=== PATIENT | female | born 1935 | race Caucasian/White ===

== ENCOUNTER → 2016-09-30 | Outpatient (CLI) | payer OTHER, MEDICARE ==
[~2016-09-30] MED LIST: AMLO-110 PO; CALCTAB5 PO; CHOL1CAP85 PO; CLS1 PO; COEN1CAP46 PO; DOCU-94 PO; LEVO100T PO; LEVO1TAB35 PO; LEVO88TA PO; NXM/40 PO; OXYC-57 PO; ROSU5TAB PO; SENN1TAB77 PO
--- NOTE | 2016-09-30 16:38 | MAMMOGRAPHY REPORT ---
BILATERAL DIGITAL SCREENING MAMMOGRAM WITH CAD: 09/30/2016 CLINICAL HISTORY: Routine screening. Patient has no complaints. TECHNIQUE: Bilateral CC and MLO views were obtained. Current study was also evaluated with a Comput er Aided Detection (CAD) system. COMPARISON: Comparison is made to exams dated: 02/24/2015 mammogram, 12/28/2013 mammogram, 11/05/2012 ma mmogram, 11/04/2011 mammogram, 10/31/2010 mammogram, and 10/30/2009 mammogram - [facility] er. BREAST COMPOSITION: There are scattered areas of fibroglandular density in both breasts. FINDINGS: There are mild vascular calcifications and scattered bilateral benign-appearing calcifica tions in both breasts. No suspicious mass, architectural distortion or cluster of microcalcifications is seen. IMPRESSION: ACR BI-RADS CATEGORY 2: BENIGN There is no mammographic evidence of malignancy. A 1 year screening mammogram is recommended. The p atient will receive written notification of the results. Approximately 10% of breast cancers are not detected with mammography. A negative mammographic repor t should not delay biopsy if a clinically suggestive mass is present. Laurel Morrison M.D. ay/:09/30/2016 16:30:39 Geriatric Physician: Radha DILL(Mitra)(John), [facility] letter sent: Normal 1/2 BI-RADS Code: ACR BI-RADS Category 2: Benign
== END | disposition home or self-care (01) ==
LOC: C.MAMM 14:13
PROVIDERS: ATTEND Internal Medicine
DX: Z12.31 Encounter for screening mammogram for malignant neoplasm of breast (principal)

== ENCOUNTER → 2016-10-01 | Outpatient (CLI) | payer OTHER, MEDICARE ==
[2016-10-01 12:55] LABS: ALT/SGPT 56 U/L (12-78); BLOOD UREA NITROGEN 10 mg/dl (7-18); BUN/CREATININE RATIO 14.3 (10-20); CALCIUM 9.3 mg/dl (8.5-10.1); CARBON DIOXIDE 25 mmol/L (21-32); CHLORIDE 106 mmol/L (98-107); CHOLESTEROL 208 mg/dl (0-200); GLUCOSE 116 mg/dl (70-99); POTASSIUM 3.9 mmol/L (3.5-5.1); SODIUM 140 mmol/L (136-145)
[2016-10-01 13:06] LABS: ALB/GLOB RATIO 1.1 (0.9-2); ALKALINE PHOSPHATASE 97 U/L (45-117); AST/SGOT 50 U/L (15-37); CHOLESTEROL/HDL RATIO 3.8; HDL CHOLESTEROL 55 mg/dl; LDL CHOLESTEROL CALCULATED 92 mg/dl; TRIGLYCERIDES 303 mg/dl (0-150); VERY LOW DENSITY LIPOPROT CALC 61 mg/dl
== END | disposition home or self-care (01) ==
LOC: C.LAB1850 11:43
PROVIDERS: ATTEND Internal Medicine
DX: E03.9 Hypothyroidism, unspecified (principal); E78.5 Hyperlipidemia, unspecified; Z23 Encounter for immunization; Z85.828 Personal history of other malignant neoplasm of skin; I10 Essential (primary) hypertension; E55.9 Vitamin D deficiency, unspecified

== ENCOUNTER 2016-10-22 19:31 | Emergency (ER) | payer OTHER, MEDICARE ==
[~2016-10-22] VITALS: Ht 157.5 cm; Wt 84.9 kg
[~2016-10-22 19:31] MED LIST changes: -AMLO-110 PO; -CHOL1CAP85 PO; -DOCU-94 PO; -LEVO1TAB35 PO; -LEVO88TA PO; -OXYC-57 PO; -SENN1TAB77 PO
[2016-10-22 19:49] VITALS: BP 187/92; PULSE 112; TEMP 37; O2SAT 94; Ht 157.5 cm; Wt 84.9 kg
--- NOTE | 2016-10-22 20:08 | EMERGENCY ROOM VISIT NOTE ---
ED Visit Note First contact with patient: 19:53 CHIEF COMPLAINT: Tick bite HISTORY OF PRESENT ILLNESS: This patient noticed a tick embedded in the LEFT axillary area this evening. Was able to remove all of it. It had been on for about 24 hours. REVIEW OF SYSTEMS: Head: No headache, injury or neck pain. A Neck: No pain , stiffness, or swelling. Neurological: No headache, new changes in mental status, vertigo, focal weakness, numbness. Gastrointestinal: No abdominal pain , blood in stools, diarrhea, loss of appetite, nausea, or vomiting. General: No fever or chills, fatigue, loss of appetite, or significant recent weight gain or loss. PMH: The patient is healthy; there is no significant medical or surgical history. SOCIAL HISTORY: Patient lives at home. Non-smoker, occasional alcohol use. PHYSICAL EXAM: Vital Signs: Reviewed Nurse's notes. There is a small zone of inflammation and eccymosis around the spot where the tick was. The skin is otherwise clear. NEUROLOGICAL: Alert and cooperative. Sensory and motor functions grossly intact. DIAGNOSIS: Tick bite DISCHARGE INSTRUCTIONS & TREATMENT: Watch the area for signs of infection. Keep bacitracin on it for 2 days. Current/Historical Medications Scheduled Amlodipine (Norvasc), 5 MG PO DAILY Cholecalciferol (Vitamin D3), 10,000 UNITS PO WK Esomeprazole Magnesium (Nexium), 40 MG PO DAILY Levothyroxine Sodium (Synthroid), 88 MCG PO DAILY Rosuvastatin Calcium (Crestor), 10 MG PO HS Allergies Coded Allergies: Clavulanic Acid (Verified Allergy, Mild, 10/22/16) Gemfibrozil (Verified Allergy, Mild, 10/22/16) Tetracyclines (Verified Allergy, Mild, 10/22/16) Amoxicillin (Verified Allergy, Unknown, RASH, 10/22/16) Metformin (Verified Allergy, Unknown, ., 10/22/16) Macrolides (Verified Adverse Reaction, Mild, 10/22/16) Penicillins (Verified Adverse Reaction, Mild, C DIFF, 10/22/16) Vital Signs Date Time Temp Pulse Resp B/P Pulse Ox O2 Delivery O2 Flow Rate FiO2 10/22/16 19:49 37.0 112 18 187/92 94 Room Air Departure Information Impression Primary Impression: Tick bite Dispostion Home / Self-Care Condition GOOD Referrals RV. Carrillo MD (PCP) Forms HOME CARE DOCUMENTATION FORM, Work Instructions, IMPORTANT VISIT INFORMATION Patient Instructions ED Bite Tick No Abx Tx, My [facility] Additional Instructions Watch the area for signs of infection. Keep bacitracin on it for 2 days. Problem Qualifiers Primary Impression: Tick bite Encounter type: initial encounter Qualified Codes: W57.XXXA - Bitten or stung by nonvenomous insect and other nonvenomous arthropods, initial encounter
[2016-10-22] MEDS ORDERED: LEVO88TA PO (20:15)
[2016-10-22] MEDS ORDERED: AMLO-110 PO (20:15)
[2016-10-22] MEDS ORDERED: CHOL1CAP85 PO (20:15)
== END 2016-10-22 20:10 | disposition home or self-care (01) ==
LOC: C.EDB 19:32 → C.EDD 20:10
DX: S40.862A Insect bite (nonvenomous) of left upper arm, initial encounter (principal); W57.XXXA Bitten or stung by nonvenomous insect and other nonvenomous arthropods, initial encounter

== ENCOUNTER 2016-10-27 18:46 | Inpatient (IN) | payer OTHER, MEDICARE ==
[~2016-10-27] VITALS: Ht 158.8 cm; Wt 81.6 kg
[~2016-10-27 18:46] MED LIST changes: +AMLO-110 PO; -CALCTAB5 PO; +CHOL1CAP85 PO; -CLS1 PO; -COEN1CAP46 PO; -LEVO100T PO; +LEVO88TA PO
[2016-10-27] MEDS ORDERED: ACETAMINOPHEN 500 MG TAB PO STA (19:18)
--- NOTE | 2016-10-27 19:26 | EMERGENCY ROOM VISIT NOTE ---
History Report prepared by Hernan: Wai Jiménez Under the Supervision of: Dr. Ammon Cee M.D. First contact with patient: 19:12 Chief Complaint: SINUS CONGESTION/PRESSURE Stated Complaint: MUCUS History of Present Illness The patient is a 81 year old female who presents to the Emergency Room with complaints of worsening chest congestion that began 1 week ago. The patient has been taking [id number] Mucinex that she states has been helping until today. She has been experiencing fevers, no appetite, and cough with sputum.. She denies any vomiting, diarrhea, sore throat, shortness of breath, urinary symptoms, and rhinorrhea. She states that she has been keeping up with her fluid intake. She notes that she recently had a deer tick removed from her body. She denies any sick contacts. She did receive an influenza immunization this year. She does not have a past medical history of any lung disease. Source of History: patient Onset: 1 week ago Position: chest Symptom Intensity: moderate Quality: other (congestion) Timing: worsening Associated Symptoms: + cough, + fevers, No SOB, No diarrhea, No sorethroat, No urinary symptoms, No vomiting Note: She denies any rhinorrhea. Review of Systems See HPI for pertinent positives & negatives. A total of 10 systems reviewed and were otherwise negative. Past Medical & Surgical Medical Problems: (1) GERD (gastroesophageal reflux disease) (2) Hyperlipidemia Family History Omitted secondary to age. Social History Smoking Status: Never Smoker Smokeless Tobacco Use: No Drug Use: none Occupation Status: retired Current/Historical Medications Scheduled Amlodipine (Norvasc), 5 MG PO DAILY Cholecalciferol (Vitamin D3), 10,000 UNITS PO WK Esomeprazole Magnesium (Nexium), 40 MG PO DAILY Levothyroxine Sodium (Synthroid), 88 MCG PO DAILY Rosuvastatin Calcium (Crestor), 10 MG PO HS Allergies Coded Allergies: Clavulanic Acid (Verified Allergy, Mild, 10/27/16) Gemfibrozil (Verified Allergy, Mild, 10/27/16) Tetracyclines (Verified Allergy, Mild, 10/27/16) Amoxicillin (Verified Allergy, Unknown, RASH, 10/27/16) Metformin (Verified Allergy, Unknown, ., 10/27/16) Macrolides (Verified Adverse Reaction, Mild, 10/27/16) Penicillins (Verified Adverse Reaction, Mild, C DIFF, 10/27/16) Physical Exam Vital Signs Date Time Temp Pulse Resp B/P Pulse Ox O2 Delivery O2 Flow Rate FiO2 10/27/16 23:05 85 18 139/75 93 Nasal Cannula 2.0 10/27/16 22:30 86 21 131/52 92 Nasal Cannula 10/27/16 21:45 92 16 92 Nasal Cannula 2.0 10/27/16 21:16 37.4 90 22 127/83 97 Nasal Cannula 2.0 10/27/16 19:10 94 Nasal Cannula 2.0 10/27/16 19:09 94 Nasal Cannula 2.0 10/27/16 19:01 38.2 104 20 159/74 91 Room Air Physical Exam GENERAL: Patient is in no acute distress. HEENT: No acute trauma, normocephalic atraumatic, mucous membranes moist, no nasal congestion, no scleral icterus. NECK: No stridor, no adenopathy, no meningismus, trachea is midline. LUNGS: Wheezing bilaterally, moist cough noted, breath sounds are equal, crackles at both bases especially on the right. HEART: Tachycardic with a regular rhythm. No murmurs. ABDOMEN: Soft, nontender, bowel sounds positive, no hernias, no peritonitis. EXTREMITIES: No cyanosis or edema, full range of motion of all the joints without pain or difficulty, no signs for acute trauma. NEUROLOGIC: Oriented x 3, no acute motor or sensory deficits, no focal weakness. SKIN: No rash, no jaundice, no diaphoresis. Medical Decision & Procedures ER Provider Diagnostic Interpretation: X-ray results as stated below per interpretation by me and the radiologist: CHEST ONE VIEW PORTABLE CLINICAL HISTORY: Weakness. COMPARISON STUDY: No previous studies for comparison. FINDINGS: Lung volumes are normal. There is no pneumothorax or pleural effusion. There is mild asymmetric interstitial thickening within the right lung. Mild cardiomegaly is noted. IMPRESSION: 1. Mild asymmetric interstitial thickening within the right lung. While this could be artifactual, this raises the possibility of an infectious etiology or asymmetric pulmonary edema. PA and lateral chest radiographs in one month are recommended. 2. Mild cardiomegaly. Electronically signed by: Meng Fong M.D. 10/27/2016 7:37 PM Dictated Date/Time: 10/27/2016 7:35 PM Laboratory Results 10/27/16 19:52 Red Blood Count 4.71, Mean Corpuscular Volume 85.1, Mean Corpuscular Hemoglobin 30.1, Mean Corpuscular Hemoglobin Concent 35.4, Mean Platelet Volume 9.2, Neutrophils (%) (Auto) 63.9, Lymphocytes (%) (Auto) 23.5, Monocytes (%) (Auto) 10.7, Eosinophils (%) (Auto) 1.3, Basophils (%) (Auto) 0.3, Neutrophils # (Auto ) 5.82, Lymphocytes # (Auto) 2.14, Monocytes # (Auto) 0.98, Eosinophils # (Auto ) 0.12, Basophils # (Auto) 0.03 10/27/16 19:52 Test 10/27/16 00:00 10/27/16 19:52 10/27/16 19:55 10/27/16 20:15 Urine Color DK YELLOW Urine Appearance CLOUDY (CLEAR) Urine pH 5.5 (4.5-7.5) Urine Specific [place] 1.019 (1.000-1.030) Urine Protein 1+ (NEG) Urine Glucose (UA) NEG (NEG) Urine Ketones 1+ (NEG) Urine Occult Blood 2+ (NEG) Urine Nitrite NEG (NEG) Urine Bilirubin NEG (NEG) Urine Urobilinogen NEG (NEG) Urine Leukocyte Esterase SMALL (NEG) Urine WBC (Auto) 10-30 /hpf (0-5) Urine RBC (Auto) 5-10 /hpf (0-4) Urine Hyaline Casts (Auto) 1-5 /lpf (0-5) Urine Epithelial Cells (Auto) >30 /lpf (0-5) Urine Bacteria (Auto) NEG (NEG) Urine Renal Epithelial Cells 0-5 /lpf (0-5) White Blood Count 9.12 K/uL (4.8-10.8) Red Blood Count 4.71 M/uL (4.2-5.4) Hemoglobin 14.2 g/dL (12.0-16.0) Hematocrit 40.1 % (37-47) Mean Corpuscular Volume 85.1 fL (80-100) Mean Corpuscular Hemoglobin 30.1 pg (25-34) Mean Corpuscular Hemoglobin Concent 35.4 g/dl (32-36) Platelet Count 211 K/uL (130-400) Mean Platelet Volume 9.2 fL (7.4-10.4) Neutrophils (%) (Auto) 63.9 % Lymphocytes (%) (Auto) 23.5 % Monocytes (%) (Auto) 10.7 % Eosinophils (%) (Auto) 1.3 % Basophils (%) (Auto) 0.3 % Neutrophils # (Auto) 5.82 K/uL (1.4-6.5) Lymphocytes # (Auto) 2.14 K/uL (1.2-3.4) Monocytes # (Auto) 0.98 K/uL (0.11-0.59) Eosinophils # (Auto) 0.12 K/uL (0-0.5) Basophils # (Auto) 0.03 K/uL (0-0.2) RDW Standard Deviation 41.3 fL (36.4-46.3) RDW Coefficient of Variation 13.1 % (11.5-14.5) Immature Granulocyte % (Auto) 0.3 % Immature Granulocyte # (Auto) 0.03 K/uL (0.00-0.02) Anion Gap 9.0 mmol/L (3-11) Est Creatinine Clear Calc Drug Dose 68.2 ml/min Estimated GFR () 96.7 Estimated GFR (Non- 83.4 BUN/Creatinine Ratio 14.0 (10-20) Calcium Level 8.6 mg/dl (8.5-10.1) Magnesium Level 1.9 mg/dl (1.8-2.4) Total Bilirubin 0.5 mg/dl (0.2-1) Direct Bilirubin 0.1 mg/dl (0-0.2) Aspartate Amino Transf (AST/SGOT) 44 U/L (15-37) Alanine Aminotransferase (ALT/SGPT) 31 U/L (12-78) Alkaline Phosphatase 81 U/L (45-117) Total Protein 7.4 gm/dl (6.4-8.2) Albumin 3.8 gm/dl (3.4-5.0) Thyroid Stimulating Hormone (TSH) 2.630 uIu/ml (0.300-4.500) Free Thyroxine 1.25 ng/dl (0.80-1.60) Bedside Lactic Acid Venous 0.96 mmol/L (0.90-1.70) Influenza Type A Antigen Neg for Influ A (NEG) Influenza Type B Antigen Neg for Influ B (NEG) Test 10/27/16 23:04 Laboratory results reviewed by me. Medications Administered Medications (Trade) Dose Ordered Sig/Daina Route Start Time Stop Time Status Last Admin Dose Admin Acetaminophen (Tylenol Tab) 1,000 mg NOW STAT PO 10/27/16 19:18 10/27/16 19:20 DC 10/27/16 20:14 1,000 MG Albuterol (Ventolin Hfa Inhaler) 4 puffs NOW ONCE INH 10/27/16 19:30 10/27/16 19:31 DC 10/27/16 20:15 4 PUFFS Levofloxacin (Levaquin / D5W) 750 mg NOW STAT IV 10/27/16 20:31 10/27/16 20:32 DC 10/27/16 21:10 750 MG Levalbuterol (Xopenex 1.25MG/ 0.5ML Neb) 1.25 mg NOW STAT INH 10/27/16 21:32 10/27/16 21:33 DC 10/27/16 21:41 1.25 MG Ipratropium [place] (Atrovent 0.02% 0.5MG/2.5ML Neb) 0.5 mg NOW STAT INH 10/27/16 21:32 10/27/16 21:33 DC 10/27/16 21:41 0.5 MG ECG Indication: SOB/dyspnea Rate (beats per minute): 97 Rhythm: sinus rhythm Findings: 1st degree AV block, no acute ischemic change, no ectopy ED Course 1911: The patient was evaluated in room C11B. A complete history and physical exam was performed. 1917: Ordered Tylenol Tab 1000 mg PO 1929: Ordered Albuterol 4 puffs INH 2030: Ordered Levofloxacin 750 mg IV 2131: Ordered Ipratropium [place] 0.5 mg INH, Levalbuterol 1.25 mg INH 2143: Upon reexamination the patient is resting. I discussed results and treatment plan with the patient. She verbalizes agreement and understanding. The patient will be evaluated by Dr. Zaidi - [facility], for further management. Medical Decision Differential diagnosis includes but is not limited to pneumonia, bronchitis, sepsis, dehydration, influenza, flu-like illness, anemia, electrolyte imbalance , and UTI. There is no leukocytosis or concerning anemia. No significant electrolyte abnormality, kidney failure, hepatitis. The patient appears to be in a euthyroid state. Urinalysis does not show infection. Influenza testing is negative. Lactic acid level is not elevated making sepsis less likely. Chest x -ray shows what appears to be an infiltrate forming to the right lung. There was no CHF or pneumothorax. Blood cultures are pending. The patient presented with a low O2 saturation-she was hypoxic. She required O2 supplementation. Her initial O2 saturation was 87% on room air. She received albuterol via MDI, oral Tylenol, IV Levaquin. She received IV saline and was given a Xopenex Atrovent neb. The patient is doing well. With the hypoxia, with pneumonia findings, I do think admission/observation is warranted. I spoke with her and to case management. The on-call hospitalist was consulted. Consults Time Called: 2139 Consulting Physician: Dr. Dyan Roa [facility] Returned Call: [phone] He will be evaluating the patient for further management. Impression Primary Impression: Hypoxia Additional Impressions: Pneumonia Fever Scribe Attestation The scribe's documentation has been prepared under my direction and personally reviewed by me in its entirety. I confirm that the note above accurately reflects all work, treatment, procedures, and medical decision making performed by me. Departure Information Dispostion Being Evaluated By Hospitalist Referrals RV. Carrillo MD (PCP) Patient Instructions My [facility] Problem Qualifiers
[2016-10-27] MEDS ORDERED: ALBUTEROL HFA 8 GM INHALER INH ONE (19:30)
--- NOTE | 2016-10-27 19:38 | DIAGNOSTIC IMAGING REPORT ---
CHEST ONE VIEW PORTABLE CLINICAL HISTORY: Weakness. COMPARISON STUDY: No previous studies for comparison. FINDINGS: Lung volumes are normal. There is no pneumothorax or pleural effusion. There is mild asymmetric interstitial thickening within the right lung. Mild cardiomegaly is noted. IMPRESSION: 1. Mild asymmetric interstitial thickening within the right lung. While this could be artifactual, this raises the possibility of an infectious etiology or asymmetric pulmonary edema. PA and lateral chest radiographs in one month are recommended. 2. Mild cardiomegaly. Electronically signed by: Meng Fong M.D. 10/27/2016 7:37 PM Dictated Date/Time: 10/27/2016 7:35 PM
[2016-10-27 20:19] LABS: BASO % 0.3 %; BASO ABS # 0.03 K/uL (0-0.2); COMPLETE YES; EOS % 1.3 %; HEMATOCRIT 40.1 % (37-47); IG% 0.3 %; LYMPH % 23.5 %; LYMPH ABS # 2.14 K/uL (1.2-3.4); MEAN CELL VOLUME 85.1 fL (80-100); MEAN CORPUSCULAR HEMOGLOBIN 30.1 pg (25-34); MEAN CORPUSCULAR HGB CONC 35.4 g/dl (32-36); MEAN PLATELET VOLUME 9.2 fL (7.4-10.4); MONO % 10.7 %; NEUT % 63.9 %; PLATELET COUNT 211 K/uL (130-400); RED BLOOD COUNT 4.71 M/uL (4.2-5.4); WHITE BLOOD COUNT 9.12 K/uL (4.8-10.8)
[2016-10-27] MEDS ORDERED: LEVAQUIN 750MG / 150ML D5W IV STA (20:31)
[2016-10-27 20:47] LABS: ALT/SGPT 31 U/L (12-78); AST/SGOT 44 U/L (15-37); BLOOD UREA NITROGEN 9 mg/dl (7-18); CALCIUM 8.6 mg/dl (8.5-10.1); CARBON DIOXIDE 29 mmol/L (21-32); CHLORIDE 94 mmol/L (98-107); CREATININE 0.66 mg/dl (0.60-1.20); GLUCOSE 129 mg/dl (70-99); MAGNESIUM 1.9 mg/dl (1.8-2.4); POTASSIUM 3.4 mmol/L (3.5-5.1); SODIUM 132 mmol/L (136-145)
[2016-10-27 20:55] LABS: ALKALINE PHOSPHATASE 81 U/L (45-117)
[2016-10-27] MEDS ORDERED: IPRATROPIUM BROMIDE NEB SOLN 0.02% 2.5 ML VIAL INH STA (21:32)
[2016-10-27] MEDS ORDERED: LEVALBUTEROL 1.25MG/0.5ML NEB INH STA (21:32)
[2016-10-27 21:35] LABS: URINE APPEARANCE CLOUDY (CLEAR); URINE BILIRUBIN NEG (NEG); URINE COLOR DK YELLOW; URINE EPITHELIAL CELL AUTO >30 /lpf (0-5); URINE NITRITE NEG (NEG); URINE PH 5.5 (4.5-7.5); URINE SPECIFIC GRAVITY 1.019 (1.000-1.030); UROBILINOGEN NEG (NEG)
[2016-10-27 21:45] VITALS: PULSE 92; O2SAT 92
[2016-10-27 21:53] LABS: MANUAL MICROSCOPIC REQUIRED? NO; REVIEW REQ? YES
[2016-10-27] MEDS ORDERED: ONDANSETRON INJ 2 MG/ML 2 ML VIAL IV PRN (22:15)
[2016-10-27] MEDS ORDERED: ALUMINUM/MAGNESIUM/SIMETH (MAALOX MAX) 30 ML UDC PO PRN (22:15)
[2016-10-27] MEDS ORDERED: MAGNESIUM HYDROXIDE SUSP 30 ML UDC PO PRN (22:15)
[2016-10-27] MEDS ORDERED: ACETAMINOPHEN 325 MG TAB PO PRN (22:15)
[2016-10-27] MEDS ORDERED: ALBUTEROL 0.083% NEBU SOLN 3 ML VIAL INH PRN (22:15)
[2016-10-27] MEDS ORDERED: POLYETHYLENE (MIRALAX) 17 GM PACK PO PRN (22:15)
[2016-10-27] MEDS ORDERED: MAGNESIUM OXIDE 400 MG TAB PO SCH (22:30)
--- NOTE | 2016-10-27 22:39 | History and Physical ---
History & Physical Date & Time of Service: Oct 27, 2016 at 22:25 Chief Complaint: MUCUS Primary Care Physician: RV. Carrillo MD History of Present Illness Source: patient 81 y/o F Hx HTN, HPL, hypothyroidism. Pt has had a productive cough for one week followed by fevers over the past few days. She had been taking Mucinex OTC with minimal relief. She denies CP, N/V however she complains of weakness and a poor appetite. 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 Past Medical/Surgical History Medical Problems: (1) GERD (gastroesophageal reflux disease) Status: Chronic (2) Hyperlipidemia Status: Chronic Family History Both parents owing to heart disease Social History Smoking Status: Never Smoker Smokeless Tobacco Use: No Drug Use: none Occupational Status: retired Immunizations History of Influenza Vaccine: No History of Tetanus Vaccine?: Yes Tetanus Immunization Date: Dec 16, 1999 History of Pneumococcal: Yes Pneumococcal Date: Dec 16, 1999 History of Hepatitis B Vaccine: Yes Hepatitis Immunization Date: Dec 16, 1999 Multi-Drug Resistant Organisms History of MDRO: No Allergies Coded Allergies: Clavulanic Acid (Verified Allergy, Mild, 10/27/16) Gemfibrozil (Verified Allergy, Mild, 10/27/16) Tetracyclines (Verified Allergy, Mild, 10/27/16) Amoxicillin (Verified Allergy, Unknown, RASH, 10/27/16) Metformin (Verified Allergy, Unknown, ., 10/27/16) Macrolides (Verified Adverse Reaction, Mild, 10/27/16) Penicillins (Verified Adverse Reaction, Mild, C DIFF, 10/27/16) Home Medications Scheduled Amlodipine (Norvasc), 5 MG PO DAILY Cholecalciferol (Vitamin D3), 10,000 UNITS PO WK Esomeprazole Magnesium (Nexium), 40 MG PO DAILY Levothyroxine Sodium (Synthroid), 88 MCG PO DAILY Rosuvastatin Calcium (Crestor), 10 MG PO HS Review of Systems Constitutional: + fever, + sweats, + weakness Eyes: No eye pain, No worsening of vision ENT: No hearing loss, No nasal symptoms, No unusual epistaxis Respiratory: + cough, + shortness of breath, + sputum, No dyspnea on exertion, No wheezing Cardiovascular: No PND, No chest pain, No orthopnea Abdomen: No nausea, No pain, No vomiting Musculoskeletal: No joint pain, No muscle pain Genitourinary - Female: No dysuria, No urinary frequency, No urinary urgency Neurologic: + weakness, No memory loss, No paralysis Psychiatric: No depression symptoms Endocrine: + fatigue Hematologic / Lymphatic: No abnormal bleeding/bruising Integumentary: No rash Allergic / Immunologic: No environmental allergies Physical Exam Vital Signs Date Time Temp Pulse Resp B/P Pulse Ox O2 Delivery O2 Flow Rate FiO2 10/27/16 21:45 92 16 92 Nasal Cannula 2.0 10/27/16 21:16 37.4 90 22 127/83 97 Nasal Cannula 2.0 10/27/16 19:10 94 Nasal Cannula 2.0 10/27/16 19:09 94 Nasal Cannula 2.0 10/27/16 19:01 38.2 104 20 159/74 91 Room Air General Appearance: WD/WN, no apparent distress Head: normocephalic Eyes: normal inspection ENT: normal ENT inspection, hearing grossly normal, + pertinent finding (May have thrush on her tongue ) Neck: supple, no JVD Respiratory/Chest: + decreased breath sounds, + crackles, + pertinent finding ( B/L crackles - poor air movement) Cardiovascular: regular rate, rhythm, no edema, no gallop Abdomen/GI: normal bowel sounds, non tender, soft Back: normal inspection, no CVA tenderness, no muscle spasm, normal range of motion Extremities/Musculoskelatal: normal inspection, no calf tenderness, normal capillary refill, no pedal edema, normal range of motion 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, no motor/sensory deficits, alert, normal mood/affect, normal reflexes, oriented x 3 Skin: normal color, warm/dry, no rash Diagnostics Laboratory Results Results Past 24 Hours Test 10/27/16 00:00 10/27/16 19:52 10/27/16 19:55 10/27/16 20:15 Range/Units Urine Color DK YELLOW Urine Appearance CLOUDY CLEAR Urine pH 5.5 4.5-7.5 Urine Specific [place] 1.019 1.000-1.030 Urine Protein 1+ NEG Urine Glucose (UA) NEG NEG Urine Ketones 1+ NEG Urine Occult Blood 2+ NEG Urine Nitrite NEG NEG Urine Bilirubin NEG NEG Urine Urobilinogen NEG NEG Urine Leukocyte Esterase SMALL NEG White Blood Count 9.12 4.8-10.8 K/uL Red Blood Count 4.71 4.2-5.4 M/uL Hemoglobin 14.2 12.0-16.0 g/dL Hematocrit 40.1 37-47 % Mean Corpuscular Volume 85.1 80-100 fL Mean Corpuscular Hemoglobin 30.1 25-34 pg Mean Corpuscular Hemoglobin Concent 35.4 32-36 g/dl Platelet Count 211 130-400 K/uL Mean Platelet Volume 9.2 7.4-10.4 fL Neutrophils (%) (Auto) 63.9 % Lymphocytes (%) (Auto) 23.5 % Monocytes (%) (Auto) 10.7 % Eosinophils (%) (Auto) 1.3 % Basophils (%) (Auto) 0.3 % Neutrophils # (Auto) 5.82 1.4-6.5 K/uL Lymphocytes # (Auto) 2.14 1.2-3.4 K/uL Monocytes # (Auto) 0.98 0.11-0.59 K/uL Eosinophils # (Auto) 0.12 0-0.5 K/uL Basophils # (Auto) 0.03 0-0.2 K/uL RDW Standard Deviation 41.3 36.4-46.3 fL RDW Coefficient of Variation 13.1 11.5-14.5 % Immature Granulocyte % (Auto) 0.3 % Immature Granulocyte # (Auto) 0.03 0.00-0.02 K/uL Sodium Level 132 136-145 mmol/L Potassium Level 3.4 3.5-5.1 mmol/L Chloride Level 94 98-107 mmol/L Carbon Dioxide Level 29 21-32 mmol/L Anion Gap 9.0 3-11 mmol/L Blood Urea Nitrogen 9 7-18 mg/dl Creatinine 0.66 0.60-1.20 mg/dl Est Creatinine Clear Calc Drug Dose 68.2 ml/min Estimated GFR () 96.7 Estimated GFR (Non- 83.4 BUN/Creatinine Ratio 14.0 10-20 Random Glucose 129 70-99 mg/dl Calcium Level 8.6 8.5-10.1 mg/dl Magnesium Level 1.9 1.8-2.4 mg/dl Total Bilirubin 0.5 0.2-1 mg/dl Direct Bilirubin 0.1 0-0.2 mg/dl Aspartate Amino Transf (AST/SGOT) 44 15-37 U/L Alanine Aminotransferase (ALT/SGPT) 31 12-78 U/L Alkaline Phosphatase 81 45-117 U/L Total Protein 7.4 6.4-8.2 gm/dl Albumin 3.8 3.4-5.0 gm/dl Thyroid Stimulating Hormone (TSH) 2.630 0.300-4.500 uIu/ml Free Thyroxine 1.25 0.80-1.60 ng/dl Bedside Lactic Acid Venous 0.96 0.90-1.70 mmol/L Influenza Type A Antigen Neg for Influ A NEG Influenza Type B Antigen Neg for Influ B NEG Microbiology Results 10/27/16 Blood Culture, Received Pending 10/27/16 Blood Culture, Received Pending 10/27/16 Urine Culture, Received Pending Diagnostic Radiology CXR: 1. Mild asymmetric interstitial thickening within the right lung. While this could be artifactual, this raises the possibility of an infectious etiology or asymmetric pulmonary edema. PA and lateral chest radiographs in one month are recommended. 2. Mild cardiomegaly. EKG Sinus - 1st' AV Impression Assessment and Plan 81 y/o F Hx HTN, HPL, hypothyroidism. Pt has had a productive cough for one week followed by fevers over the past few days. She had been taking Mucinex OTC with minimal relief. She denies CP, N/V however she complains of weakness and a poor appetite. Initial CXR is consistent with a R PNM. 1) PNM - pt started on Levaquin - will provide scheduled nebs and 02 as needed. It is noted that the CXR reading states CHF as an alternative diagnosis. Her lung exam is concernig however clinically she does not c/o SOB, orthopnea or PND. There is no JVD on exam. She is to receive hydration so if she worsens we should consider diuretics and an echo. 2) HTN - cont Norvasc. 3) Hypothyroid - cont Synthroid. 4) HLD - cont Statin. 5) Hyponatremia, hypokalemia - mild - replaced 6) Thrush - Nystatin provided Full code - Heparin prophylaxis Total time for this admit including review of labs, meds, EKG, imaging - discussion with pt and ER attending - 35 min Level of Care Med/Surg Resuscitation Status FULL RESUSCITATION VTE Prophylaxis VTE Risk Assessment Done? Y/N: Yes Risk Level: Moderate Given or contraindicated: Unfractionated heparin SQ
[2016-10-27 23:21] VITALS: BP 130/68; PULSE 94; TEMP 36.8; O2SAT 94
[2016-10-28] VITALS (8 sets, daily range): BP systolic 130–148; BP diastolic 68–79; PULSE 82–98; TEMP 36.3–37.2; O2SAT 93–96; Ht 158.8 cm; Wt 81.6 kg
[2016-10-28] MEDS ORDERED: MAGNESIUM SULFATE 1GM / D5W 1 GM in PREMIXED IN D5W 100 ML IV ONE (00:30)
[2016-10-28] MEDS: NSS + 20MEQ KCL 1000ML 1,000 ML IV SCH ×2 (01:13→10:24)
[2016-10-28] MEDS ORDERED: POTASSIUM CHLORIDE PWD 20 MEQ PACK PO ONE (02:00)
[2016-10-28] MEDS: ALBUT/IPRATROP 3MG/0.5MG NEB 3 ML VIAL INH SCH ×4 (02:31→19:35)
[2016-10-28] MEDS ORDERED: LEVOFLOXACIN CONSULT ACTIVE PRN (02:45)
[2016-10-28] MEDS: LEVOTHYROXINE 88 MCG TAB PO SCH (06:21)
[2016-10-28 07:46] LABS: PROTHROMBIN TIME (PATIENT) 11.1 SECONDS (9.0-12.0)
[2016-10-28] MEDS: NYSTATIN SUSP 500,000 U/5 ML UDC PO SCH ×4 (08:13→20:18)
[2016-10-28] MEDS: PANTOprazole SOD 40 MG TAB PO SCH (08:13)
[2016-10-28] MEDS: AMLODIPINE BESYLATE 5 MG TAB PO SCH (08:14)
[2016-10-28] MEDS: HEPARIN SOD 5000 UNIT/0.5 ML CARP SQ SCH ×3 (08:16→22:00)
[2016-10-28 08:55] LABS: CREATININE 0.59 mg/dl (0.60-1.20); POTASSIUM 3.6 mmol/L (3.5-5.1)
[2016-10-28 09:01] LABS: CALCIUM 8.9 mg/dl (8.5-10.1)
--- NOTE | 2016-10-28 13:13 | DIAGNOSTIC IMAGING REPORT ---
CHEST 2 VIEWS ROUTINE CLINICAL HISTORY: Pneumonia COMPARISON STUDY: 10/27/2016 FINDINGS: The cardiac and mediastinal contours remain stable. There is subtle asymmetric interstitial thickening on the right. There is no lobar consolidation. There is minor blunting of the posterior costophrenic angles. IMPRESSION: No significant change from the preceding study. Subtle asymmetric interstitial thickening. No evidence of lobar consolidation. Electronically signed by: Wayne Bridges M.D. 10/28/2016 1:12 PM Dictated Date/Time: 10/28/2016 1:11 PM
--- NOTE | 2016-10-28 14:26 | Family Medicine Progress Note ---
Progress Note Date of Service October 28, 2016. Subjective Pt evaluation today including: conversation w/ patient, physical exam, chart review, lab review Pain: denies pain Voiding: no voiding problems 81-year-old female with past medical history of hypertension, hypothyroidism, hyperlipidemia presented with complaints of productive cough which started about a week ago. She also had developed fevers over the past few days . Has been afebrile overnight, but states that she feels better and her weakness is improved. Continues to have a cough and is able to expectorate some sputum. Denies any chest pain, shortness of breath, palpitations, orthopnea, paroxysmal nocturnal dyspnea, leg swelling Constitutional: No chills, No fever Eyes: No worsening of vision ENT: No hearing loss Respiratory: + cough, + sputum, No shortness of breath, No wheezing Cardiovascular: No chest pain Breast: No breast lump Abdomen: No diarrhea, No nausea, No pain, No vomiting Musculoskeletal: No joint pain Female : No dysuria Psychiatric: No depression symptoms Heme: No abnormal bleeding/bruising Medications Current Inpatient Medications Medications (Trade) Dose Ordered Sig/Daina Route Start Time Stop Time Status Last Admin Dose Admin Levofloxacin/Prmx (Levaquin / D5W/ Premixed D5W) 150 ml @ 100 mls/hr Q24H IV 10/28/16 22:00 11/03/16 21:59 Albuterol/ Ipratropium (Duoneb) 3 ml Q6R INH 10/28/16 03:00 11/27/16 02:59 10/28/16 14:02 3 ML Albuterol Sulfate (Ventolin 0.083% 2.5MG/3ML Neb) 2.5 mg Q4H PRN INH 10/27/16 22:15 11/26/16 22:14 Heparin Sodium (Porcine) (Heparin Sq 5000 Unit/0.5ml) 5,000 unit Q8 SQ 10/28/16 08:00 11/27/16 07:59 10/28/16 08:16 5,000 UNIT Acetaminophen (Tylenol Tab) 650 mg Q4H PRN PO 10/27/16 22:15 11/26/16 22:14 Al Hydrox/Mg Hydrox/Simethicone (Maalox Max Susp) 15 ml Q4H PRN PO 10/27/16 22:15 11/26/16 22:14 Magnesium Hydroxide (Milk Of Magnesia Susp) 30 ml Q6H PRN PO 10/27/16 22:15 11/26/16 22:14 Polyethylene (Miralax Powder Packet) 17 gm DAILY PRN PO 10/27/16 22:15 11/26/16 22:14 Ondansetron HCl (Zofran Inj) 4 mg Q6H PRN IV 10/27/16 22:15 11/26/16 22:14 Amlodipine Besylate (Norvasc Tab) 5 mg DAILY PO 10/28/16 09:00 11/27/16 08:59 10/28/16 08:14 5 MG Levothyroxine Sodium (Synthroid Tab) 88 mcg DAILYBB PO 10/28/16 06:30 11/27/16 06:29 10/28/16 06:21 88 MCG Rosuvastatin Calcium (Crestor Tab) 10 mg HS PO 10/28/16 21:00 11/27/16 20:59 Cholecalciferol (Vitamin D Tab) 10,000 inter.unit [place]@0900 PO 11/03/16 09:00 12/03/16 08:59 Pantoprazole Sodium 40 mg 40 mg DAILY PO 10/28/16 09:00 11/27/16 08:59 10/28/16 08:13 40 MG Potassium Chloride/Sodium Chloride (Nss + 20meq KCl 1000ml) 1,000 ml @ 100 mls/hr Q10H IV 10/28/16 00:30 10/28/16 20:29 10/28/16 10:24 100 MLS/HR Nystatin (Mycostatin Susp) 5 ml QID PO 10/28/16 09:00 11/07/16 08:59 10/28/16 12:54 5 ML Levofloxacin (Consult) 1 ea UD PRN N/A 10/28/16 02:45 11/27/16 02:44 Objective Vital Signs Date Time Temp Pulse Resp B/P Pulse Ox O2 Delivery O2 Flow Rate FiO2 10/28/16 14:02 87 16 94 Nasal Cannula 2.0 10/28/16 08:00 93 Nasal Cannula 2.0 10/28/16 07:33 37.2 82 20 130/76 93 Room Air 10/28/16 06:56 91 16 94 Nasal Cannula 2.0 10/28/16 02:31 83 16 96 Nasal Cannula 2.0 10/28/16 02:21 36.8 94 20 130/68 94 Nasal Cannula 2.0 10/27/16 23:21 36.8 94 20 130/68 94 2.0 10/27/16 23:05 85 18 139/75 93 Nasal Cannula 2.0 10/27/16 22:30 86 21 131/52 92 Nasal Cannula 10/27/16 21:45 92 16 92 Nasal Cannula 2.0 10/27/16 21:16 37.4 90 22 127/83 97 Nasal Cannula 2.0 10/27/16 19:10 94 Nasal Cannula 2.0 10/27/16 19:09 94 Nasal Cannula 2.0 10/27/16 19:01 38.2 104 20 159/74 91 Room Air Physical Exam General Appearance: WD/WN, no apparent distress Eyes: normal inspection ENT: normal ENT inspection, hearing grossly normal Neck: supple Respiratory/Chest: chest non-tender, + crackles (Bialteral bases. R>L) Cardiovascular: regular rate, rhythm, no edema Abdomen: normal bowel sounds, non tender, soft Extremities: non-tender, no pedal edema Neurologic/Psychiatric: alert, normal mood/affect, oriented x 3 Laboratory Results 10/27/16 19:52 Red Blood Count 4.71, Mean Corpuscular Volume 85.1, Mean Corpuscular Hemoglobin 30.1, Mean Corpuscular Hemoglobin Concent 35.4, Mean Platelet Volume 9.2, Neutrophils (%) (Auto) 63.9, Lymphocytes (%) (Auto) 23.5, Monocytes (%) (Auto) 10.7, Eosinophils (%) (Auto) 1.3, Basophils (%) (Auto) 0.3, Neutrophils # (Auto ) 5.82, Lymphocytes # (Auto) 2.14, Monocytes # (Auto) 0.98, Eosinophils # (Auto ) 0.12, Basophils # (Auto) 0.03 10/28/16 06:36 Test 10/27/16 19:52 10/27/16 19:55 10/27/16 20:15 10/28/16 06:36 White Blood Count 9.12 K/uL (4.8-10.8) Red Blood Count 4.71 M/uL (4.2-5.4) Hemoglobin 14.2 g/dL (12.0-16.0) Hematocrit 40.1 % (37-47) Mean Corpuscular Volume 85.1 fL (80-100) Mean Corpuscular Hemoglobin 30.1 pg (25-34) Mean Corpuscular Hemoglobin Concent 35.4 g/dl (32-36) Platelet Count 211 K/uL (130-400) Mean Platelet Volume 9.2 fL (7.4-10.4) Neutrophils (%) (Auto) 63.9 % Lymphocytes (%) (Auto) 23.5 % Monocytes (%) (Auto) 10.7 % Eosinophils (%) (Auto) 1.3 % Basophils (%) (Auto) 0.3 % Neutrophils # (Auto) 5.82 K/uL (1.4-6.5) Lymphocytes # (Auto) 2.14 K/uL (1.2-3.4) Monocytes # (Auto) 0.98 K/uL (0.11-0.59) Eosinophils # (Auto) 0.12 K/uL (0-0.5) Basophils # (Auto) 0.03 K/uL (0-0.2) RDW Standard Deviation 41.3 fL (36.4-46.3) RDW Coefficient of Variation 13.1 % (11.5-14.5) Immature Granulocyte % (Auto) 0.3 % Immature Granulocyte # (Auto) 0.03 K/uL (0.00-0.02) Magnesium Level 1.9 mg/dl (1.8-2.4) Total Bilirubin 0.5 mg/dl (0.2-1) Direct Bilirubin 0.1 mg/dl (0-0.2) Aspartate Amino Transf (AST/SGOT) 44 U/L (15-37) Alanine Aminotransferase (ALT/SGPT) 31 U/L (12-78) Alkaline Phosphatase 81 U/L (45-117) Troponin I < 0.015 ng/ml (0-0.045) Pro-B-Type Natriuretic Peptide 112 pg/ml (0-1800) Total Protein 7.4 gm/dl (6.4-8.2) Albumin 3.8 gm/dl (3.4-5.0) Thyroid Stimulating Hormone (TSH) 2.630 uIu/ml (0.300-4.500) Free Thyroxine 1.25 ng/dl (0.80-1.60) Bedside Lactic Acid Venous 0.96 mmol/L (0.90-1.70) Influenza Type A Antigen Neg for Influ A (NEG) Influenza Type B Antigen Neg for Influ B (NEG) Prothrombin Time 11.1 SECONDS (9.0-12.0) Prothromb Time International Ratio 1.0 (0.9-1.1) Anion Gap 8.0 mmol/L (3-11) Est Creatinine Clear Calc Drug Dose 76.1 ml/min Estimated GFR () 100.3 Estimated GFR (Non- 86.6 BUN/Creatinine Ratio 12.0 (10-20) Calcium Level 8.9 mg/dl (8.5-10.1) Assessment and Plan 81-year-old female with past medical history of hypertension, hypothyroidism, hyperlipidemia presented with complaints of productive cough which started about a week ago. She also had developed fevers over the past few days . Admitted for possible pneumonia Community-acquired pneumonia - Chest x-ray 10/27:1. Mild asymmetric interstitial thickening within the right lung. infectious etiology vs asymmetric pulmonary edema. 2. Mild cardiomegaly. - Chest x-ray 10/28: No significant change from the preceding study. Subtle asymmetric interstitial thickening. No evidence of lobar consolidation. -Continue Levaquin - Continue nebulizers and oxygen as needed - Blood cultures, sputum culture pending Hypertension: - Continue Norvasc Hypothyroidism: - Continue Synthroid Hyperlipidemia - Continue statin Full code DVT prophylaxis: Heparin Disposition: Monitor in [facility] Resident Tracking Resident Involvement: Resident Care Provided Care Provided: Adult Hospital Medicine Reviewed: Pt Seen/Exam by Me History no fever since after admission but feeling very cold right now cough +, phlegm + Cardiovascular: denies chest pain, denies edema, denies palpitations Gastrointestinal/Abdominal: negative: abdominal pain General Appearance: no apparent distress Respiratory: no respiratory distress, crackles (bilaterally lower lung) Cardiovascular: regular rate, rhythm Gastrointestinal: normal bowel sounds, non tender, soft Neurologic/Psychiatric: alert, oriented x 3 Assessment/Plan I have reviewed the medical record and performed a history and physical examination of this patient today. I have discussed the case with Dr. Grey. The above note reflects my findings, conclusions, and recommendation.
[2016-10-28] MEDS ORDERED: SODIUM CHLORIDE 0.65% NA SOLN 45 ML (OCEAN) PRN (17:00)
[2016-10-28] MEDS ORDERED: NURSING VERBAL MED ORDER ONE (17:00)
[2016-10-28] MEDS ORDERED: ROSUVASTATIN CALCIUM 10 MG TAB PO SCH (21:00)
[2016-10-28] MEDS ORDERED: LEVOFLOXACIN / D5W 750 MG in PREMIXED IN D5W 150 ML IV SCH (22:00)
[2016-10-29] VITALS (8 sets, daily range): BP systolic 142–173; BP diastolic 79–93; PULSE 89–111; TEMP 36.7–37.1; O2SAT 93–96
[2016-10-29] MEDS: ALBUT/IPRATROP 3MG/0.5MG NEB 3 ML VIAL INH SCH ×3 (02:00→14:21)
[2016-10-29] MEDS ORDERED: HALOPERIDOL LACTATE 5 MG/ML 1 ML VIAL ONE (04:37)
[2016-10-29] MEDS ORDERED: HALOPERIDOL LACTATE 5 MG/ML 1 ML VIAL IM STA (04:40)
[2016-10-29] MEDS ORDERED: NURSING VERBAL MED ORDER ONE (04:45)
[2016-10-29] MEDS: HEPARIN SOD 5000 UNIT/0.5 ML CARP SQ SCH ×2 (05:29→12:22)
[2016-10-29] MEDS: NYSTATIN SUSP 500,000 U/5 ML UDC PO SCH ×2 (07:58→12:22)
[2016-10-29] MEDS: AMLODIPINE BESYLATE 5 MG TAB PO SCH (07:58)
[2016-10-29] MEDS: PANTOprazole SOD 40 MG TAB PO SCH (07:58)
[2016-10-29] MEDS: LEVOTHYROXINE 88 MCG TAB PO SCH (07:58)
[2016-10-29 12:03] LABS: MEAN CELL VOLUME 84.8 fL (80-100); MEAN CORPUSCULAR HEMOGLOBIN 30.3 pg (25-34); MEAN PLATELET VOLUME 9.2 fL (7.4-10.4); PLATELET COUNT 258 K/uL (130-400); RED BLOOD COUNT 4.95 M/uL (4.2-5.4); WHITE BLOOD COUNT 6.84 K/uL (4.8-10.8)
[2016-10-29 12:18] LABS: MEAN CORPUSCULAR HGB CONC 35.7 g/dl (32-36)
[2016-10-29 12:28] LABS: BUN/CREATININE RATIO 14.6 (10-20); CALCIUM 9.8 mg/dl (8.5-10.1); CREATININE 0.5 mg/dl (0.60-1.20); MAGNESIUM 2.3 mg/dl (1.8-2.4); POTASSIUM 3.4 mmol/L (3.5-5.1)
[2016-10-29 13:04] LABS: LYME DISEASE AB IGG NEG (NEG)
[2016-10-29 13:07] LABS: LYME DISEASE AB IGM NEG (NEG)
[2016-10-29] MEDS ORDERED: LEVO1TAB35 PO ×2 (17:11→17:28)
--- NOTE | 2016-10-29 17:19 | Discharge Instructions ---
Discharge Instructions Date of Service October 29, 2016. Admission Reason for Admission: Pneumonia Discharge Discharge Diagnosis / Problem: Pneumonia Discharge Goals Goal(s): Decrease discomfort Activity Recommendations Activity Limitations: resume your previous activity . Instructions / Follow-Up Instructions / Follow-Up You were admitted with fevers and a cough concerning for a pneumonia. Pneumonia: - Continue Levaquin 750 mg every day for 5 more days - you may use Mucinex to help with the cough High BP - Continue Norvasc Hypothyroidism: - Continue Synthroid Hyperlipidemia - Continue Crestor Please follow up with Your PCP/family doctor in about a week. If you have any worsening breathing, Chest pain or high fever with cough , Please return to the ER or go to your doctor Current Hospital Diet Patient's current hospital diet: Regular Diet Discharge Diet Recommended Diet: AHA Diet (Heart Healthy) Pending Studies Studies pending at discharge: no Laboratory Results Lipid Panel Test 10/01/16 11:47 Range/Units Triglycerides Level 303 H 0-150 mg/dl Cholesterol Level 208 H 0-200 mg/dl HDL Cholesterol 55 mg/dl Cholesterol/HDL Ratio 3.8 LDL Cholesterol, Calculated 92 mg/dl Medical Emergencies . Who to Call and When: Medical Emergencies: If at any time you feel your situation is an emergency, please call 911 immediately. . Non-Emergent Contact Non-Emergency issues call your: Primary Care Provider . . "Provider Documentation" section prepared by Aubrie Grey. . VTE Core Measure Inpt VTE Proph given/why not?: Unfractionated heparin SQ
--- NOTE | 2016-10-29 17:40 | Discharge Summary ---
Discharge Summary Date of Service October 29, 2016. (Aubrie Grey MD) Discharge Summary Admission Date: Oct 27, 2016 at 22:19 Discharge Date: October 29, 2016 Discharge Disposition: Home Principal Diagnosis: pneumonia Immunizations: Have You Had Influenza Vaccine: No History of Tetanus Vaccine?: Yes Tetanus Immunization Date: Dec 16, 1999 History of Pneumococcal: Yes Pneumococcal Date: Dec 16, 1999 History of Hepatitis B Vaccine: Yes Hepatitis Immunization Date: Dec 16, 1999 (Aubrie Grey MD) Medication Reconciliation New Medications: Levofloxacin (Levaquin) 750 Mg Tab 750 MG PO DAILY for 5 Days, #5 TAB Continued Medications: Amlodipine (Norvasc) 5 Mg Tab 5 MG PO DAILY, TAB Cholecalciferol (Vitamin D3) 10,000 Unit Cap 15372 UNITS PO WK TAKES ON SUNDAYS. Esomeprazole Magnesium (Nexium) 40 Mg Cap 40 MG PO DAILY, CAP Levothyroxine Sodium (Synthroid) 88 Mcg Tab 88 MCG PO DAILY, TAB Rosuvastatin Calcium (Crestor) 5 Mg Tab 10 MG PO HS, TAB Discharge Exam Feeling better. No fevers overnight. Was delirious overnight and combative. Review of Systems: Constitutional: No chills, No fever Eyes: No worsening of vision ENT: No hearing loss Respiratory: + cough, No shortness of breath Cardiovascular: No chest pain Abdomen: No nausea, No pain Genitourinary - Female: No dysuria, No urinary frequency Neurologic: No memory loss, No paralysis Endocrine: No fatigue Hematologic / Lymphatic: No abnormal bleeding/bruising Physical Exam: General Appearance: WD/WN Eyes: normal inspection ENT: normal ENT inspection Neck: supple Respiratory/Chest: chest non-tender, normal breath sounds, + crackles Abdomen / GI: non tender, soft Extremities: normal inspection, no calf tenderness Neurologic/Psychiatric: alert, normal mood/affect, oriented x 3 (uAbrie Grey MD) confused overnight. coherent at the time of discharge. Review of Systems: Constitutional: No fever Respiratory: + cough (better), No shortness of breath Cardiovascular: No chest pain Physical Exam: General Appearance: no apparent distress Respiratory/Chest: no respiratory distress, + crackles, + rhonchi ( occasaional) Cardiovascular: regular rate, rhythm Abdomen / GI: normal bowel sounds, non tender, soft Neurologic/Psychiatric: alert, oriented x 3 Skin: warm/dry (Zahraa Coombs M.D.) Hospital Course 81 y/o F Hx HTN, HPL, hypothyroidism. Pt has had a productive cough for one week followed by fevers over the past few days. She had been taking Mucinex OTC with minimal relief. She denies CP, N/V however she complains of weakness and a poor appetite. 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 1) PNM - was started on Levaquin 750 mg IV daily - Bilateral crackles heard on exam but no other symptoms consistent with CHF Chest x-ray 10/27- . Mild asymmetric interstitial thickening within the right lung. While this could be artifactual, this raises the possibility of an infectious etiology or asymmetric pulmonary edema. PA and lateral chest radiographs in one month are recommended. 2. Mild cardiomegaly CXR 10/28:: No significant change from the preceding study. Subtle asymmetric interstitial thickening. No evidence of lobar consolidation - Discharged with 5 days of by mouth Levaquin - Recommended to follow-up with PCP in one week 2) HTN - cont Norvasc. 3) Hypothyroid - cont Synthroid. 4) HLD - cont Statin. Follow-up with PCP in one week Total Time Spent: Less than 30 minutes This includes examination of the patient, discharge planning, medication reconciliation, and communication with other providers. (Aubrie Grey MD) I have reviewed the medical record and performed a history and physical examination of this patient today. I have discussed the case with Dr. Grey. The above note reflects my findings, conclusions, and recommendations. Total Time Spent: Greater than 30 minutes (35) (Zahraa Coombs M.D.) Discharge Instructions Please refer to the electronic Patient Visit Report (Discharge Instructions) for additional information. (Aubrie Grey MD) Follow-Up With the PCP in 1 week (Aubrie Grey MD) Additional Copies To RV. Carrillo MD Resident Tracking Resident Involvement: Resident Care Provided Care Provided: Adult [facility] (Aubrie Grey MD)
[2016-11-03] MEDS ORDERED: CHOLECALCIFEROL 1000 INTER.UNIT TAB PO SCH (09:00)
== END 2016-10-29 18:15 | disposition home or self-care (01) | DRG 194 ==
LOC: ENRESERVTM → ENRESERVDT → C.EDB 18:46 → C.MS2W 22:19
PROVIDERS: ADMIT Internal Medicine; ATTEND Family Medicine
DX: J18.9 Pneumonia, unspecified organism (principal); B37.0 Candidal stomatitis; E87.1 Hypo-osmolality and hyponatremia; K21.9 Gastro-esophageal reflux disease without esophagitis; E78.5 Hyperlipidemia, unspecified; I10 Essential (primary) hypertension; E87.6 Hypokalemia; Z82.49 Family history of ischemic heart disease and other diseases of the circulatory system; Z88.0 Allergy status to penicillin

== ENCOUNTER → 2016-12-02 | Outpatient (CLI) | payer OTHER, MEDICARE ==
[~2016-12-02] MED LIST changes: +DOCU-94 PO; +OXYC-57 PO; +SENN1TAB77 PO
--- NOTE | 2016-12-02 08:57 | DIAGNOSTIC IMAGING REPORT ---
CHEST 2 VIEWS ROUTINE CLINICAL HISTORY: J18.9 [id number] COMPARISON STUDY: 10/28/2016 FINDINGS: The cardiac and mediastinal contours are normal. There is no evidence of focal pulmonary consolidation. There is no evidence of failure. No pleural effusions are visualized.[ There is stable right basilar interstitial thickening/atelectasis. IMPRESSION: No change the prior study. No acute findings Electronically signed by: Wayne Bridges M.D. 12/02/2016 8:56 AM Dictated Date/Time: 12/02/2016 8:55 AM
[2016-12-02 09:49] LABS: CALCIUM 9.6 mg/dl (8.5-10.1)
[2016-12-02 09:53] LABS: BLOOD UREA NITROGEN 7 mg/dl (7-18); CARBON DIOXIDE 26 mmol/L (21-32); CHLORIDE 105 mmol/L (98-107); CREATININE 0.67 mg/dl (0.60-1.20); GLUCOSE 114 mg/dl (70-99); POTASSIUM 3.4 mmol/L (3.5-5.1); SODIUM 141 mmol/L (136-145)
[2016-12-02 14:13] LABS: LYME DISEASE AB IGG NEG (NEG); LYME DISEASE AB IGM NEG (NEG)
== END | disposition home or self-care (01) ==
LOC: C.RAD1850 08:13
PROVIDERS: ATTEND Internal Medicine
DX: Z00.00 Encounter for general adult medical examination without abnormal findings (principal); J18.9 Pneumonia, unspecified organism; E87.6 Hypokalemia

== ENCOUNTER → 2016-12-17 | Outpatient (CLI) | payer OTHER, MEDICARE ==
[2016-12-17 12:55] LABS: BLOOD UREA NITROGEN 8 mg/dl (7-18); CALCIUM 9.2 mg/dl (8.5-10.1); CARBON DIOXIDE 25 mmol/L (21-32); CHLORIDE 108 mmol/L (98-107); CREATININE 0.69 mg/dl (0.60-1.20); GLUCOSE 85 mg/dl (70-99); MAGNESIUM 2.3 mg/dl (1.8-2.4); POTASSIUM 3.9 mmol/L (3.5-5.1); SODIUM 142 mmol/L (136-145)
== END | disposition home or self-care (01) ==
LOC: C.LAB1850 10:06
PROVIDERS: ATTEND Internal Medicine
DX: E87.6 Hypokalemia (principal)

== ENCOUNTER 2016-12-21 13:58 | Emergency (ER) | payer OTHER, MEDICARE ==
[~2016-12-21] VITALS: Ht 160 cm; Wt 83.6 kg
[~2016-12-21 13:58] MED LIST changes: -DOCU-94 PO; -OXYC-57 PO; -SENN1TAB77 PO
[2016-12-21] MEDS ORDERED: ONDANSETRON 4MG OD TAB PO STA (14:05)
[2016-12-21] MEDS ORDERED: HYDROmorphone INJ 1 MG/ML SYR IM STA (14:05)
--- NOTE | 2016-12-21 14:10 | EMERGENCY ROOM VISIT NOTE ---
History Report prepared by Hernan: Wai Jiménez Under the Supervision of: Dr. Cecil Escalona M.D. 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 She rates her pain moderate in severity. The patient was walking down a ramp holding onto a flower pot when she lost her footing and fell onto her left shoulder. She did not hit her head or lose consciousness. She denies any elbow pain or weakness as well. She notes that after this occurred, she felt very lightheaded, like she was going to pass out. She believes this was secondary to the pain. 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 She denies any left elbow pain. Review of Systems See HPI for pertinent positives & negatives. A total of 10 systems reviewed and were otherwise negative. Past Medical & Surgical Medical Problems: (1) GERD (gastroesophageal reflux disease) (2) Hyperlipidemia Family History Omitted secondary to age. Social History Smoking Status: Never Smoker Smokeless Tobacco Use: No Drug Use: none Occupation Status: retired Current/Historical Medications Scheduled Amlodipine (Norvasc), 5 MG PO DAILY Cholecalciferol (Vitamin D3), 10,000 UNITS PO WK Docusate Sodium (Colace), 1 CAP PO BID Esomeprazole Magnesium (Nexium), 40 MG PO DAILY Levothyroxine Sodium (Synthroid), 88 MCG PO DAILY Rosuvastatin Calcium (Crestor), 10 MG PO HS Sennosides (Senokot), 8.6 MG PO HS Scheduled PRN Oxycodone/Acetaminophen 5MG/325MG (Percocet 5MG/325MG), 1-2 TAB PO Q4H PRN for Pain Allergies Coded Allergies: Clavulanic Acid (Verified Allergy, Mild, 12/21/16) Gemfibrozil (Verified Allergy, Mild, 12/21/16) Tetracyclines (Verified Allergy, Mild, 12/21/16) Amoxicillin (Verified Allergy, Unknown, RASH, 12/21/16) Metformin (Verified Allergy, Unknown, ., 12/21/16) Macrolides (Verified Adverse Reaction, Mild, 12/21/16) Penicillins (Verified Adverse Reaction, Mild, C DIFF, 12/21/16) Physical Exam Vital Signs Date Time Temp Pulse Resp B/P (MAP) Pulse Ox O2 Delivery O2 Flow Rate FiO2 12/21/16 19:01 90 14 141/70 98 Room Air 12/21/16 17:18 90 24 142/70 96 Room Air 12/21/16 16:27 84 12/21/16 16:25 87 18 135/67 94 Room Air 12/21/16 16:24 94 Room Air 12/21/16 15:54 83 18 148/67 93 87 154/77 88 150/72 12/21/16 14:12 36.6 81 18 190/103 95 Room Air Physical Exam GENERAL: Patient is a healthy-appearing well-nourished female HEAD: Normocephalic atraumatic EYES: Ocular movements intact pupils equal and react to light OROPHARYNX mucous membranes are moist no exudates present no erythema or edema present NECK: Supple no nuchal rigidity CHEST: Good equal expansion LUNGS: Clear and equal to auscultation CARDIAC: Normal S1 and S2 ABDOMEN: Soft nontender no guarding BACK: No CVA tenderness EXTREMITIES: Poor range of motion of left shoulder. Crepitus noted as well. Good range of motion of left elbow, neurovascularly intact at the fingers on left. NEURO: Patient is following commands and answering questions appropriately. Alert and oriented x3 Cranial Nerves 2-12 grossly intact Medical Decision & Procedures ER Provider Diagnostic Interpretation: Radiology results as stated below per my review and radiologist interpretation: LEFT SHOULDER 2 VIEWS CLINICAL HISTORY: Fall with left shoulder pain. FINDINGS: 2 views of the left shoulder are obtained. No prior studies are available for comparison at the time of dictation. The skeletal structures are osteopenic. There is an impacted fracture through the left humeral neck which extends through the greater tuberosity of the humeral head. There is approximately 5 mm of anteromedial distraction of the humeral shaft. The glenohumeral articulation is preserved. Overlying soft tissue edema is noted. Productive degenerative change is seen at the acromioclavicular joint. The imaged right lung parenchyma appears clear. IMPRESSION: There is an impacted and mildly distracted fracture through the left humeral neck which extends through the greater tuberosity of the humeral head as above. Electronically signed by: Ammon Chan M.D. 12/21/2016 2:34 PM Dictated Date/Time: 12/21/2016 2:33 PM SINGLE VIEW CHEST CLINICAL HISTORY: Fall. FINDINGS: An AP upright chest radiograph is compared to study dated 12/02/2016. The examination is degraded by patient rotation. The heart is mildly enlarged and there is atherosclerotic calcification of the thoracic aorta. The pulmonary vasculature is noncongested. Chronic interstitial thickening is similar to previous. Foci of linear atelectasis versus scarring are identified in the lower lungs. No airspace consolidation, large pleural effusion, or pneumothorax is seen. The skeletal structures are osteopenic. An impacted left humeral neck fracture is partially imaged. Degenerative change is seen throughout the thoracic spine. IMPRESSION: 1. Cardiomegaly with no acute cardiopulmonary abnormality. 2. Impacted left humeral neck fracture. Electronically signed by: Ammon Chan M.D. 12/21/2016 2:36 PM Dictated Date/Time: 12/21/2016 2:[address] SCAN OF THE BRAIN WITHOUT IV CONTRAST CLINICAL HISTORY: Syncope. Fall. COMPARISON STUDY: No priors. TECHNIQUE: Unenhanced axial CT scan of the brain is performed from the vertex to the skull base. CT DOSE: 601.98 mGy.cm FINDINGS: Brain parenchyma: There are age-related involutional changes noting mild to moderate patchy subcortical and periventricular microangiopathic change. There is no hemorrhage, mass effect, or evidence of acute territorial ischemia by CT criteria. Quintero-white matter is preserved. No extra-axial fluid collection is seen. Ventricles, sulci, cisterns: Prominent secondary to involutional change. Intracranial vasculature: There is atherosclerotic calcification of the cavernous carotid and vertebral arteries. Calvarium: The skeletal structures are osteopenic. There is no depressed calvarial fracture. Sinuses and mastoids: The visualized paranasal sinuses are clear. The mastoid air cells are well pneumatized. Orbits: The bony orbits are grossly intact. There are bilateral ocular lens implants. IMPRESSION: There is no hemorrhage, mass effect, or evidence of acute territorial ischemia by CT criteria. Electronically signed by: Ammon Chan M.D. 12/21/2016 4:17 PM Dictated Date/Time: 12/21/2016 4:15 PM Laboratory Results 12/21/16 15:50 Red Blood Count 4.86, Mean Corpuscular Volume 86.2, Mean Corpuscular Hemoglobin 29.4, Mean Corpuscular Hemoglobin Concent 34.1, Mean Platelet Volume 9.5, Neutrophils (%) (Auto) 69.5, Lymphocytes (%) (Auto) 21.6, Monocytes (%) (Auto) 6.1, Eosinophils (%) (Auto) 2.0, Basophils (%) (Auto) 0.4, Neutrophils # (Auto) 7.58, Lymphocytes # (Auto) 2.35, Monocytes # (Auto) 0.66, Eosinophils # (Auto) 0.22, Basophils # (Auto) 0.04 12/21/16 15:50 Test 12/21/16 15:50 White Blood Count 10.89 K/uL (4.8-10.8) Red Blood Count 4.86 M/uL (4.2-5.4) Hemoglobin 14.3 g/dL (12.0-16.0) Hematocrit 41.9 % (37-47) Mean Corpuscular Volume 86.2 fL (80-100) Mean Corpuscular Hemoglobin 29.4 pg (25-34) Mean Corpuscular Hemoglobin Concent 34.1 g/dl (32-36) Platelet Count 218 K/uL (130-400) Mean Platelet Volume 9.5 fL (7.4-10.4) Neutrophils (%) (Auto) 69.5 % Lymphocytes (%) (Auto) 21.6 % Monocytes (%) (Auto) 6.1 % Eosinophils (%) (Auto) 2.0 % Basophils (%) (Auto) 0.4 % Neutrophils # (Auto) 7.58 K/uL (1.4-6.5) Lymphocytes # (Auto) 2.35 K/uL (1.2-3.4) Monocytes # (Auto) 0.66 K/uL (0.11-0.59) Eosinophils # (Auto) 0.22 K/uL (0-0.5) Basophils # (Auto) 0.04 K/uL (0-0.2) RDW Standard Deviation 42.8 fL (36.4-46.3) RDW Coefficient of Variation 13.5 % (11.5-14.5) Immature Granulocyte % (Auto) 0.4 % Immature Granulocyte # (Auto) 0.04 K/uL (0.00-0.02) Anion Gap 10.0 mmol/L (3-11) Est Creatinine Clear Calc Drug Dose 66.6 ml/min Estimated GFR () 95.3 Estimated GFR (Non- 82.2 BUN/Creatinine Ratio 13.0 (10-20) Calcium Level 9.0 mg/dl (8.5-10.1) Total Bilirubin 0.4 mg/dl (0.2-1) Direct Bilirubin < 0.1 mg/dl (0-0.2) Aspartate Amino Transf (AST/SGOT) 53 U/L (15-37) Alanine Aminotransferase (ALT/SGPT) 48 U/L (12-78) Alkaline Phosphatase 86 U/L (45-117) Total Creatine Kinase 119 U/L (26-192) Creatine Kinase MB 0.8 ng/ml (0.5-3.6) Creatine Kinase MB Ratio 0.7 (0-3.0) Troponin I < 0.015 ng/ml (0-0.045) Total Protein 7.4 gm/dl (6.4-8.2) Albumin 4.0 gm/dl (3.4-5.0) Thyroid Stimulating Hormone (TSH) 2.910 uIu/ml (0.300-4.500) Labs reviewed by ED physician. Medications Administered Medications (Trade) Dose Ordered Sig/Daina Route Start Time Stop Time Status Last Admin Dose Admin Hydromorphone HCl (Dilaudid Inj) 1 mg NOW STAT IM 12/21/16 14:05 12/21/16 14:07 DC 12/21/16 14:18 1 MG Ondansetron HCl (Zofran Odt) 4 mg ONE STAT PO 12/21/16 14:05 12/21/16 14:07 DC 12/21/16 14:16 4 MG Metoclopramide HCl (Reglan Inj) 10 mg NOW STAT IV 12/21/16 15:29 12/21/16 15:31 DC 12/21/16 16:03 10 MG Hydromorphone HCl (Dilaudid Inj) 0.5 mg NOW STAT IV 12/21/16 17:43 12/21/16 17:44 DC 12/21/16 17:55 0.5 MG Ondansetron HCl (Zofran Inj) 4 mg NOW STAT IV 12/21/16 17:43 12/21/16 17:44 DC 12/21/16 17:55 4 MG Oxycodone/ Acetaminophen (Percocet 5/ 325MG Home Pack) 1 homepack UD ONCE PO 12/21/16 19:15 12/21/16 19:16 DC 12/21/16 19:21 1 HOMEPACK ECG Indication: back/shoulder pain Rate (beats per minute): 78 Rhythm: normal sinus Findings: 1st degree AV block, no acute ischemic change, no ectopy ED Course 1400: Past medical records reviewed. The patient was evaluated in room B4B. A complete history and physical examination was performed. 1405: Ordered Zofran Odt 4 mg PO, Dilaudid Inj 1 mg IM 1529: Ordered Reglan Inj 10 mg IV 1558: At this time, I spoke with Dr. Hair of Orthopedics. He recommended that the patient follow up with him in his office as an outpatient in the coming week. 1743: Ordered Zofran Inj 4 mg IV, Dilaudid Inj 0.5 mg IV 1900: I discussed the results with the patient. They have verbalized consent and understanding. The patient will be transferred to [facility] for further management. Medical Decision Differential diagnosis: Etiologies such as fracture, dislocation, intra-abdominal, pneumothorax, intrathoracic , intracranial, neurologic, as well as other traumatic pathologies were entertained. Medication Reconciliation: I attest that I have personally reviewed the patient' s current medication list Blood Pressure Screening: Patient was found to have an elevated blood pressure and was referred to their primary care doctor for recheck and further treatment This is an 81-year-old female who presents emergency department complaining of left shoulder pain after a fall at home. The patient reports she tripped. She is obvious crepitus to the left shoulder area however the shoulder itself appears to be in place. She has a humeral neck fracture. The patient was given IM Dilaudid as well as Zofran in the emergency department. I did discuss the case with Dr. Hair who requested that the patient be placed in a shoulder immobilizer and have close follow-up as an outpatient. Both myself and family are concerned the patient may not be able to care for herself at home therefore we contacted case management to have the patient placed in rehabilitation. Patient was in agreement with the treatment plan. Consults Time Called: 1555 Consulting Physician: Dr. Hair - Orthopedics Returned Call: [phone] He recommends follow up with him sometime next week. Impression Primary Impression: Fall Additional Impression: Humerus fracture Scribe Attestation The scribe's documentation has been prepared under my direction and personally reviewed by me in its entirety. I confirm that the note above accurately reflects all work, treatment, procedures, and medical decision making performed by me. Departure Information Dispostion Transfer Acute Care Facility Prescriptions Docusate Sodium (COLACE) 100 Mg Cap 1 CAP PO BID for 15 Days, #30 CAP Prov: Cecil Escalona MD 12/21/16 Sennosides (SENOKOT) 8.6 Mg Tab 8.6 MG PO HS, #10 TAB Prov: Cecil Escalona MD 12/21/16 Oxycodone/Acetaminophen 5MG/325MG (PERCOCET 5MG/325MG) Tab 1-2 TAB PO Q4H Y for Pain, #14 TAB Prov: Cecil Escalona MD 12/21/16 Referrals RV. Carrillo MD (PCP) Forms HOME CARE DOCUMENTATION FORM, IMPORTANT VISIT INFORMATION, School Instructions, Work Instructions Additional Instructions Follow up with Dr Hair's office You were found to have an elevated blood pressure today (>120 sytolic or >90 diastolic). Per medicare guidelines, you need to follow up with this blood pressure screening with your Primary Care Physician (PCP). For a new PCP call [phone]. You received narcotic or benzodiazepene medication while in the emergency room today. Do not drive, operate heavy machinery, or drink alcohol under the influence of this medication. Take Percocet for breakthrough pain You have been examined and treated today on an emergency basis only. This is not a substitute for, or an effort to provide, complete comprehensive medical care. It is impossible to recognize and treat all injuries or illnesses in a single emergency department visit. It is therefore important that you follow up closely with Dr Olvera. Call as soon as possible for an appointment. Thank you for your time and consideration. I look forward to speaking with you again soon. Please don't hesitate to call us if you have any questions. Problem Qualifiers Primary Impression: Fall Encounter type: initial encounter Qualified Codes: W19.XXXA - Unspecified fall, initial encounter Additional Impression: Humerus fracture Encounter type: initial encounter Humerus Location: surgical neck Fracture type: closed Fracture morphology: unspecified fracture morphology Fracture alignment: nondisplaced Laterality: left Qualified Codes: S42.215A - Unspecified nondisplaced fracture of surgical neck of left humerus, initial encounter for closed fracture
[2016-12-21 14:12] VITALS: TEMP 36.6; Ht 160 cm; Wt 83.6 kg
--- NOTE | 2016-12-21 14:36 | DIAGNOSTIC IMAGING REPORT ---
LEFT SHOULDER 2 VIEWS CLINICAL HISTORY: Fall with left shoulder pain. FINDINGS: 2 views of the left shoulder are obtained. No prior studies are available for comparison at the time of dictation. The skeletal structures are osteopenic. There is an impacted fracture through the left humeral neck which extends through the greater tuberosity of the humeral head. There is approximately 5 mm of anteromedial distraction of the humeral shaft. The glenohumeral articulation is preserved. Overlying soft tissue edema is noted. Productive degenerative change is seen at the acromioclavicular joint. The imaged right lung parenchyma appears clear. IMPRESSION: There is an impacted and mildly distracted fracture through the left humeral neck which extends through the greater tuberosity of the humeral head as above. Electronically signed by: Ammon Chan M.D. 12/21/2016 2:34 PM Dictated Date/Time: 12/21/2016 2:33 PM
--- NOTE | 2016-12-21 14:37 | DIAGNOSTIC IMAGING REPORT ---
SINGLE VIEW CHEST CLINICAL HISTORY: Fall. FINDINGS: An AP upright chest radiograph is compared to study dated 12/02/2016. The examination is degraded by patient rotation. The heart is mildly enlarged and there is atherosclerotic calcification of the thoracic aorta. The pulmonary vasculature is noncongested. Chronic interstitial thickening is similar to previous. Foci of linear atelectasis versus scarring are identified in the lower lungs. No airspace consolidation, large pleural effusion, or pneumothorax is seen. The skeletal structures are osteopenic. An impacted left humeral neck fracture is partially imaged. Degenerative change is seen throughout the thoracic spine. IMPRESSION: 1. Cardiomegaly with no acute cardiopulmonary abnormality. 2. Impacted left humeral neck fracture. Electronically signed by: Ammon Chan M.D. 12/21/2016 2:36 PM Dictated Date/Time: 12/21/2016 2:34 PM
[2016-12-21] MEDS ORDERED: METOCLOPRAMIDE HCL INJ 5 MG/ML 2 ML VIAL IV STA (15:29)
[2016-12-21 16:14] LABS: BASO % 0.4 %; BASO ABS # 0.04 K/uL (0-0.2); COMPLETE YES; HEMATOCRIT 41.9 % (37-47); IG% 0.4 %; LYMPH % 21.6 %; LYMPH ABS # 2.35 K/uL (1.2-3.4); MEAN CELL VOLUME 86.2 fL (80-100); MEAN CORPUSCULAR HEMOGLOBIN 29.4 pg (25-34); MEAN CORPUSCULAR HGB CONC 34.1 g/dl (32-36); MEAN PLATELET VOLUME 9.5 fL (7.4-10.4); MONO % 6.1 %; NEUT % 69.5 %; PLATELET COUNT 218 K/uL (130-400); RED BLOOD COUNT 4.86 M/uL (4.2-5.4); WHITE BLOOD COUNT 10.89 K/uL (4.8-10.8)
--- NOTE | 2016-12-21 16:18 | DIAGNOSTIC IMAGING REPORT ---
CT SCAN OF THE BRAIN WITHOUT IV CONTRAST CLINICAL HISTORY: Syncope. Fall. COMPARISON STUDY: No priors. TECHNIQUE: Unenhanced axial CT scan of the brain is performed from the vertex to the skull base. CT DOSE: 601.98 mGy.cm FINDINGS: Brain parenchyma: There are age-related involutional changes noting mild to moderate patchy subcortical and periventricular microangiopathic change. There is no hemorrhage, mass effect, or evidence of acute territorial ischemia by CT criteria. Quintero-white matter is preserved. No extra-axial fluid collection is seen. Ventricles, sulci, cisterns: Prominent secondary to involutional change. Intracranial vasculature: There is atherosclerotic calcification of the cavernous carotid and vertebral arteries. Calvarium: The skeletal structures are osteopenic. There is no depressed calvarial fracture. Sinuses and mastoids: The visualized paranasal sinuses are clear. The mastoid air cells are well pneumatized. Orbits: The bony orbits are grossly intact. There are bilateral ocular lens implants. IMPRESSION: There is no hemorrhage, mass effect, or evidence of acute territorial ischemia by CT criteria. Electronically signed by: Ammon Chan M.D. 12/21/2016 4:17 PM Dictated Date/Time: 12/21/2016 4:15 PM
[2016-12-21 16:24] VITALS: O2SAT 94
[2016-12-21 16:32] LABS: ALT/SGPT 48 U/L (12-78); BLOOD UREA NITROGEN 9 mg/dl (7-18); CARBON DIOXIDE 26 mmol/L (21-32); CHLORIDE 106 mmol/L (98-107); CREATININE 0.69 mg/dl (0.60-1.20); GLUCOSE 144 mg/dl (70-99); POTASSIUM 3.4 mmol/L (3.5-5.1); SODIUM 142 mmol/L (136-145)
[2016-12-21 16:48] LABS: ALKALINE PHOSPHATASE 86 U/L (45-117); AST/SGOT 53 U/L (15-37); CKMB/CK RATIO 0.7 (0-3.0)
[2016-12-21] MEDS ORDERED: HYDROmorphone INJ 0.5 MG/0.5 ML SYR IV STA (17:43)
[2016-12-21] MEDS ORDERED: ONDANSETRON INJ 2 MG/ML 2 ML VIAL IV STA (17:43)
[2016-12-21] MEDS ORDERED: SENN1TAB77 PO (18:57)
[2016-12-21] MEDS ORDERED: OXYC-57 PO (18:57)
[2016-12-21] MEDS ORDERED: DOCU-94 PO (18:57)
[2016-12-21 19:01] VITALS: BP 141/70; PULSE 90; O2SAT 98
[2016-12-21] MEDS ORDERED: PERCOCET HOME PACK PO ONE (19:15)
== END 2016-12-21 19:32 ==
LOC: EDBD 13:58 → C.EDB 13:59
DX: S42.292A Other displaced fracture of upper end of left humerus, initial encounter for closed fracture (principal); M25.512 Pain in left shoulder; W19.XXXA Unspecified fall, initial encounter; I51.7 Cardiomegaly; E78.5 Hyperlipidemia, unspecified; Z79.899 Other long term (current) drug therapy

== ENCOUNTER → 2017-01-07 | Outpatient (CLI) | payer OTHER, MEDICARE ==
[~2017-01-07] MED LIST changes: +OXYC-57 PO
[2017-01-07 13:14] LABS: THYROID STIMULATING HORMONE 6.05 uIu/ml (0.300-4.500)
== END | disposition home or self-care (01) ==
LOC: C.LAB1850 09:53
PROVIDERS: ATTEND Physician Assistant
DX: E03.9 Hypothyroidism, unspecified (principal)

== ENCOUNTER → 2017-08-28 | Outpatient (CLI) | payer OTHER, MEDICARE ==
[~2017-08-28] MED LIST changes: -OXYC-57 PO
[2017-08-28 09:49] LABS: ALBUMIN 3.9 gm/dl (3.4-5.0); ALT/SGPT 45 U/L (12-78); AST/SGOT 50 U/L (15-37); BLOOD UREA NITROGEN 9 mg/dl (7-18); CALCIUM 9.3 mg/dl (8.5-10.1); CARBON DIOXIDE 25 mmol/L (21-32); CHOLESTEROL 191 mg/dl (0-200); CREATININE 0.67 mg/dl (0.60-1.20); GLUCOSE 101 mg/dl (70-99); POTASSIUM 3.7 mmol/L (3.5-5.1); SODIUM 140 mmol/L (136-145)
[2017-08-28 09:59] LABS: ALKALINE PHOSPHATASE 91 U/L (45-117); LDL CHOLESTEROL CALCULATED 104 mg/dl; TOTAL PROTEIN 7.5 gm/dl (6.4-8.2)
== END | disposition home or self-care (01) ==
LOC: C.LAB1850 08:15
PROVIDERS: ATTEND Internal Medicine
DX: S42.292A Other displaced fracture of upper end of left humerus, initial encounter for closed fracture (principal); X58.XXXA Exposure to other specified factors, initial encounter; E78.5 Hyperlipidemia, unspecified; E03.9 Hypothyroidism, unspecified; M25.472 Effusion, left ankle; I10 Essential (primary) hypertension

== ENCOUNTER → 2017-10-13 | Outpatient (CLI) | payer OTHER, MEDICARE ==
--- NOTE | 2017-10-14 07:47 | MAMMOGRAPHY REPORT ---
BILATERAL DIGITAL SCREENING MAMMOGRAM TOMOSYNTHESIS WITH CAD: 10/13/2017 CLINICAL HISTORY: Routine screening. Patient has no complaints. TECHNIQUE: Breast tomosynthesis in addition to standard 2D mammography was performed. Current study was also evaluated with a Computer Aided Detection (CAD) system. COMPARISON: Comparison is made to exams dated: 09/30/2016 mammogram, 02/24/2015 mammogram, 12/28/2013 payam mogram, 11/05/2012 mammogram, 11/04/2011 mammogram, and 10/31/2010 mammogram - [facility] . BREAST COMPOSITION: There are scattered areas of fibroglandular density in both breasts. FINDINGS: There are benign vascular calcifications and scattered benign rim and rodlike calcificatio ns in both breasts. No suspicious mass, architectural distortion or cluster of suspicious microcalci fications is seen. IMPRESSION: ACR BI-RADS CATEGORY 2: BENIGN There is no mammographic evidence of malignancy. A 1 year screening mammogram is recommended. The pa tient will receive written notification of the results. Approximately 10% of breast cancers are not detected with mammography. A negative mammographic report should not delay biopsy if a clinically suggestive mass is present. Laurel Morrison M.D. ay/:10/13/2017 15:37:43 Senior Mortgage Underwriter: Isabela BALTAZAR)(John), [facility] letter sent: Normal 1/2 BI-RADS Code: ACR BI-RADS Category 2: Benign
== END | disposition home or self-care (01) ==
LOC: C.MAMM 14:20
PROVIDERS: ATTEND Internal Medicine
DX: Z12.31 Encounter for screening mammogram for malignant neoplasm of breast (principal)

== ENCOUNTER 2021-10-24 09:54 | Observation (INO) ==
--- NOTE | 2021-10-08 10:41 | PAT Medication Instructions ---
Medication Instructions Date of Service October 08, 2021 Home Medications cholecalciferol (vitamin D3) 25 mcg (1,000 unit) tablet 1,000 units PO QAM nystatin 100,000 unit/gram topical powder 1 appln TOP BID PRN amlodipine 5 mg tablet 5 mg PO QAM esomeprazole magnesium 40 mg capsule,delayed release (Nexium) 40 mg PO QAM levothyroxine 100 mcg tablet 100 mcg PO QAM losartan 25 mg tablet 25 mg PO QAM STOP taking 24 hours before surgery nystatin 100,000 unit/gram topical powder 1 appln TOP BID PRN DO NOT take the morning of surgery cholecalciferol (vitamin D3) 25 mcg (1,000 unit) tablet 1,000 units PO QAM losartan 25 mg tablet 25 mg PO QAM Take morning of surgery With a small sip of water, OTHERWISE NOTHING TO EAT OR DRINK AFTER MIDNIGHT: amlodipine 5 mg tablet 5 mg PO QAM esomeprazole magnesium 40 mg capsule,delayed release (Nexium) 40 mg PO QAM levothyroxine 100 mcg tablet 100 mcg PO QAM Other Notes If you have any questions please call us at [phone] or [phone] or [phone] or [phone]
--- NOTE | 2021-10-09 08:24 | Anesthesiology Consultation ---
Date of Service October 09, 2021 Assessment & Plan (1) Encounter for pre-operative examination: Chart Review Chart Review: Acceptable Risk for Surgery (pending PCP appt 10/12, carotid duplex (PCP scheduling) and preop Covid testing results ) and Patient seen in Pre Admission Testing -Will await routine appt scheduled with PCP 10/12/21 -Also wrote note to PCP inquiring if patient ever had carotid testing- PCP ordering carotid duplex- will await results Per PAT appt on 10/09/21, patient denies any recent travel or large group activities. No known Covid positive exposures or Covid related symptoms. No known Covid infection in the past 90 days.. Pt is vaccinated for Covid. Preop Covid testing scheduled 10/22/21 = will await results. Educated on importance of self quarantining, social distancing and wearing mask in public for the patient one week prior to surgery and after Covid testing done Teaching & Discussion Pre-Anesthesia Teaching/Discussion Notes: Instructed NPO after midnight before surgery,except medications with 15 cc of water. Medication instructions provided according to the PAT guidelines. History Surgery Operation Date: 10/24/21 10:55 Proposed Procedures p Left Total Knee Arthroplasty - Greg Sexton MD Height/Weight Height: 5 ft 1 in Weight: 76.6 kg Allergies Allergy/AdvReac Type Severity Reaction Status Date / Time amoxicillin Allergy Mild RASH Verified 10/04/21 13:45 clavulanic acid Allergy Mild Rash Verified 10/04/21 13:45 benzoyl peroxide Allergy Unknown Unknown Verified 10/04/21 13:45 doxycycline Allergy Unknown Unknown Verified 10/04/21 13:45 gemfibrozil Allergy Unknown Unknown Verified 10/04/21 13:45 metformin Allergy Unknown Unknown Verified 10/04/21 13:45 Tetracyclines Allergy Unknown Unknown Verified 10/04/21 13:45 Penicillins AdvReac Intermediate developed Verified 10/04/21 13:45 C DIFF Macrolide Antibiotics AdvReac Unknown Unknown Verified 10/04/21 13:45 Medications Home Medications Medication Instructions Recorded Confirmed Last Taken cholecalciferol (vitamin D3) 25 1,000 units PO QAM 04/01/19 10/04/21 Unknown mcg (1,000 unit) tablet nystatin 100,000 unit/gram topical 1 appln TOP BID PRN gm 03/22/20 10/04/21 Unknown powder amlodipine 5 mg tablet 5 mg PO QAM 10/04/21 10/04/21 Unknown esomeprazole magnesium 40 mg 40 mg PO QAM 10/04/21 10/04/21 Unknown capsule,delayed release (Nexium) levothyroxine 100 mcg tablet 100 mcg PO QAM 10/04/21 10/04/21 Unknown losartan 25 mg tablet 25 mg PO QAM 10/04/21 10/04/21 Unknown Past Medical History Medical History GERD (gastroesophageal reflux disease) Well controlled and stable with Nexium History of SCC (squamous cell carcinoma) of skin S/p removal on face- no current issues Hyperlipidemia Hypertension Hypothyroidism Low back pain Macular degeneration of right eye Murmur Had ECHO 10/24/20 (showed moderate AV sclerosis with NO AV stenosis; mild mitral annular calcification)-- no benefits consultant, follows with PCP Nausea and vomiting after administration of anesthetic agent Poor historian pt had difficulty remembering her health hx Exercise / Class Metabolic Activity II 4-5 Yardwork/Stairs/Walk up hill (one flight of stairs - no chest pain or SOB ) Past Family History Family History Mother Hyperlipidemia Other No family history of adverse response to anesthesia Denies family history of Ovarian cancer Prostate cancer Myocardial infarction Breast cancer Colorectal cancer Past Surgical History Surgical History History of dacryocystorhinostomy History of Mohs micrographic surgery for skin cancer x2 History of root canal procedure History of tonsillectomy and adenoidectomy History of tooth extraction partial upper History of unilateral oophorectomy 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 No hx of seizures, stroke, [place]. No hx of blood clots or blood transfusions Physical Exam Vital Signs VITALS BP 145/82 P 85 TEMP 98.3 SP02 95% RESP 16 Constitutional no acute distress ENMT Mouth: + small oral opening; no TMJ clicking Thyromental Distance: < 3.5 Finger Breadths (3.0) Mallampati Class: III Top partial denture Missing bottom molars and side teeth Neck + limited neck extension Respiratory normal respiratory effort; no respiratory distress Auscultation: lungs clear to auscultation bilaterally; no wheezes Cardiovascular Rate/Rhythm: regular rate and regular rhythm Heart Sounds: + murmur (III/ murmur ) Vessels: + carotid bruit (faint carotid bruit bilaterally vs radiation from heart murmur ) Musculoskeletal Spine: + pain with cervical ROM Extremities: extremities normal to inspection Psychiatric Orientation: alert Lab Results Anesthesia Preop Results Results Anesthesia Widget: WBC 8.35 K/uL (4.8-10.8) 10/09/21 Hgb 14.9 g/dL (12.0-16.0) 10/09/21 Hct 44.0 % (37-47) 10/09/21 Plt 271 K/uL (130-400) 10/09/21 Na 141 mmol/L (136-145) 10/09/21 K 3.5 mmol/L (3.5-5.1) 10/09/21 Cl 104 mmol/L (98-107) 10/09/21 CO2 27 mmol/L (21-32) 10/09/21 BUN 10 mg/dl (6-23) 10/09/21 Creat 0.55 mg/dl (0.6-1.2) L 10/09/21 Glucose Level 96 mg/dl (70-99(Fasting)) 10/09/21 PT 10.2 Seconds (9.0-12.0) 10/09/21 PTT 24.6 Seconds (21.0-31.0) 10/09/21 INR 1.0 (0.9-1.1) 10/09/21 Blood Type A Positive 10/09/21 Antibody Screen NEGATIVE 10/09/21 Testing Electrocardiogram Date: 10/09/21 Findings: + no change from (December 21, 2016 per cardio ) SR with 1st degree AVB at 86bpm. Rightward axis Prolonged QT Chest X-Ray Findings: + NAD FINDINGS: PA and lateral chest radiographs are compared to study dated 12/21/2016. The cardiomediastinal silhouette is unremarkable noting atherosclerotic calcification of the thoracic aorta. Chronic interstitial thickening is similar to previous. There is mild bibasilar scarring/atelectasis. The lungs and pleural spaces are otherwise clear. There is no pneumothorax. The skeletal structures are osteopenic. The bony thorax appears intact. IMPRESSION: No active disease in the chest. Echocardiogram Date: 10/24/20 EF: 60-65-% LV Function: normal RWMA: + none Other Findings: + LVH (mild/concentric ) Moderate AV sclerosis. No hemodynamically significant AV stenosis. Mild mitral annular calcification
--- NOTE | 2021-10-20 10:21 | History and Physical Report ---
CHIEF COMPLAINT: Bilateral knee pain and discomfort, left side greater than right. HISTORY OF PRESENT ILLNESS: The patient is an 86-year-old white female who presents specifically for surgical treatment of her knees. She has got a long history of bilateral knee pain and discomfort. She describes it has gotten worse over time. She has been through extensive conservative treatment including steroid shots and gel shots. The gel shots did not help at all. Steroids shot helped for a very limited amount of time. She has become more debilitated by her knee pain. She has difficulty living an independent lifestyle. The more she is up on her legs the more it hurt. She limps more as the day goes on. She would like to have her knees fixed. PAST MEDICAL HISTORY: 1. Elevated cholesterol. 2. Hypertension. 3. Hypothyroidism. 4. Low back pain/sciatica. 5. Gastroesophageal reflux disease. 6. Skin cancer. 7. Mild obesity, BMI of 32. PAST SURGICAL HISTORY: Includes: 1. Cataract surgery. 2. Abdominal surgery. 3. BSO. ALLERGIES: MANY INCLUDIN. A GEMFIBROZIL, AMOXICILLIN, WHICH CAUSED A RASH. 2. METFORMIN, PENICILLIN, WHICH CAUSED C. DIFF. 3. BENZOYL PEROXIDE. 4. DOXYCYCLINE. 5. CLAVULANIC ACID. SOCIAL HISTORY: An 86-year-old white female. She is . She does have a roommate. She is retired. Does not smoke. No significant alcohol intake. FAMILY HISTORY: Noncontributory. REVIEW OF SYSTEMS: Negative for diabetes. No chest pain or shortness of breath. No history of DVT or PE. PHYSICAL EXAMINATION: GENERAL: Shows a pleasant, elderly female, who looks younger than her stated age. HEENT: Benign. NECK: Supple. No lymphadenopathy. LUNGS: Clear to auscultation. HEART: Has a regular rate and rhythm. ABDOMEN: Soft, nontender, nondistended. EXTREMITIES: Grossly neurovascularly intact except as follows. Examination of the left knee reveals the patient walks with a valgus alignment to her knee, which is increased with weightbearing. She has got bony hypertrophy medially and laterally. Range of motion is about 10 to 15 degrees short of full extension to 110 degrees of flexion. Knee is a bit stiff. No instability. No pain with hip motion. X-RAYS: X-rays of the left knee were reviewed. It shows advanced left knee DJD. She had complete loss of medial joint space. She had subchondral sclerosis. She got osteophytes medially. ASSESSMENT: An 86-year-old white female with advanced bilateral knee degenerative joint disease, left side more symptomatic than right. She has failed conservative treatment and would like to have her knees replaced. She wants this done on the left side first. PLAN: We will take her to the operating room and do left total knee replacement. The risks and benefits of this procedure were explained to the patient and include but not limited to DVT, PE, , infection, neurological injury, vascular injury, bleeding problem, pain, limited range of motion, stiffness, failure to relieve her symptoms, incomplete relief of symptoms, etc. The patient understands and desires to proceed. Informed consent was obtained. As far as discharge plans, she is hoping to be discharged to home using [facility] program. She said she is going to have a friend or significant other who comes over and helps her. She will remain in the hospital at least overnight. Hold her Naprosyn 2 weeks preop. Job ID: [id number] LUNA
[~2021-10-24 09:54] MED LIST changes: +ACETAMINOPHEN 500 MG TAB PO SCH; -AMLO-110 PO; +BUPIVACAINE 0.5 % 5 MG/1 ML MPF 30ML VIAL ONE; +BUPIVACAINE LIPOSOME/PF 266 MG, BUPIVACAINE/EPINEPHRINE 50 ML, SODIUM CHLORIDE 0.9% 30 ... INFIL SCH; -CHOL1CAP85 PO; +FAMOTIDINE 20 MG TAB PO SCH; +GABAPENTIN 300 MG CAP PO SCH; -LEVO88TA PO; +LR 500ML BOLUS, THEN 15ML/HR IV SCH; +LR 60ML/HR IV SCH; -NXM/40 PO; +ROPIVACAINE 0.5% 5 MG/ML 30 ML VIAL ONE; -ROSU5TAB PO; +TRANEXAMIC ACID 1,000 MG **IV Intra-op IV SCH; +ceFAZolin 2000MG 2,000 MG/15 ML SYR IV SCH
--- NOTE | 2021-10-24 10:34 | History & Physical Bridge Note ---
Date of Service October 24, 2021 History & Physical Bridge Note I have examined the patient, reviewed the History & Physical and in the interval since the performance of the History & Physical I have noted the following changes of clinical significance: no changes noted
[2021-10-24] MEDS ORDERED: MIDAZOLAM HCL 1 MG/ML 2ML VIAL ONE (10:46)
[2021-10-24] MEDS ORDERED: SODIUM CHLORIDE 0.9% INJ 10 ML VIAL ONE (10:47)
[2021-10-24] MEDS ORDERED: PHENYLEPHRINE HCL 10 MG/ML VIAL ONE (10:48)
[2021-10-24] MEDS ORDERED: ePHEDrine sulfate 50 MG/ML AMP ONE (10:48)
[2021-10-24] MEDS ORDERED: fentaNYL citrate 100 MCG/2 ML VIAL ONE (11:45)
[2021-10-24] MEDS ORDERED: BUPIVACAINE LIPOSOME 1.3% 266 MG/20 ML VIAL ONE (12:30)
[2021-10-24] MEDS ORDERED: BUPIVACAINE/EPINEPHRINE 0.25% 1:200,000 30 ML VIAL ONE (12:30)
[2021-10-24] MEDS ORDERED: SODIUM CHLORIDE 0.9% PF 50 ML VIAL ONE (12:30)
--- NOTE | 2021-10-24 14:32 | Post Operative Brief Note ---
PG Immediate Post Op with CF Date of Surgery October 24, 2021 Pre & Post Diagnosis Operation Date: 10/24/21 12:30 Pre-Op Diagnosis: Left Knee Advanced Degenerative Joint Disease Post-Op Diagnosis: Left Knee Advanced Degenerative Joint Disease I identified the patient and participated in the time-out.: Yes Procedure Operation Date: 10/24/21 12:30 Actual Procedures p Left Total Knee Arthroplasty(Left) - Greg Sexton MD Surgeon Greg Sexton MD Outboard System Operator Jace Wren PA-C Estimated Blood Loss 50 Findings Consistent with Post-Op Diagnosis Specimens Specimen Description: A. Left Knee Bone and Tissue Drains Acharya Catheter Anesthesia Type Spinal MAC Complications none Disposition Accompanied Patient To Recovery: No
--- NOTE | 2021-10-24 14:54 | XRay Report ---
TWO VIEWS LEFT KNEE CLINICAL HISTORY: Postoperative examination. FINDINGS: AP and crosstable lateral portable views of the left knee are obtained. A left knee arthrop lasty is in near anatomic alignment. There has been undersurface remodeling of the patella. No acute fracture is seen. There are expected postoperative changes around the knee including skin clips, soft tissue edema, and subcutaneous gas. IMPRESSION: Expected postoperative changes status post left knee arthroplasty. No acute fracture is s een. ACT 112: Negative or not required by law. Electronically signed by: Ammon Chan M.D. 10/24/2021 2:53 PM
[2021-10-24] MEDS ORDERED: ONDANSETRON INJ 2 MG/ML 2 ML VIAL ONE (15:01)
[2021-10-24] MEDS ORDERED: ONDANSETRON INJ 2 MG/ML 2 ML VIAL IV ONE (15:15)
--- NOTE | 2021-10-24 15:21 | Anesthesiology Progress Note ---
Date of Service October 24, 2021 Anesthesia Post Procedure Vital Signs Vital Signs: Temp Pulse Pulse Resp BP Pulse Ox 10/24/21 15:20 36.4 C L 78 21 127/65 94 10/24/21 15:10 79 20 116/62 93 10/24/21 15:00 89 22 137/71 92 10/24/21 14:50 89 18 126/67 96 10/24/21 14:40 98 H 22 137/68 96 10/24/21 14:30 36.7 C 110 H 24 133/66 98 10/24/21 10:31 36.9 C 97 H 18 176/80 H 97 Transfer of Care Handoff Completed per policy Notes Mental Status: alert / awake / arousable Patient Amnestic to Procedure: Yes Nausea / Vomiting: adequately controlled Pain: adequately controlled Airway Patency, RR, SpO2: stable & adequate BP & HR: stable & adequate Hydration State: stable & adequate Anesthetic Complications: no major complications apparent
[2021-10-24] MEDS ORDERED: NALOXONE HCL 0.4 MG/1 ML VIAL/CARP IV PRN (16:05)
[2021-10-24] MEDS ORDERED: bisacodyL 10 MG SUPP PR PRN (16:05)
[2021-10-24] MEDS ORDERED: oxyCODONE HCL IR 5 MG TAB (IMMEDIATE RELEASE) PO PRN (16:05)
[2021-10-24] MEDS ORDERED: MAGNESIUM HYDROXIDE SUSP 30 ML UDC PO PRN (16:05)
[2021-10-24] MEDS ORDERED: HYDROmorphone INJ 0.5 MG/0.5 ML SYR IV PRN (16:05)
[2021-10-24] MEDS ORDERED: ALUMINUM/MAGNESIUM SUSP 30 ML UDC PO PRN (16:05)
[2021-10-24] MEDS ORDERED: NYSTATIN POWDER 15GM BTL EXT PRN (16:05)
[2021-10-24] MEDS ORDERED: ONDANSETRON INJ 2 MG/ML 2 ML VIAL IV PRN (16:05)
[2021-10-24] MEDS ORDERED: METOCLOPRAMIDE HCL INJ 5 MG/ML 2 ML VIAL IV PRN (16:05)
[2021-10-24] MEDS: KETOROLAC TROMETHAMINE 15 MG/ML VIAL IV SCH ×2 (16:57→21:56)
[2021-10-24] MEDS: ASCORBIC ACID 500 MG TAB PO SCH (17:01)
[2021-10-24] MEDS: SODIUM CHLORIDE 0.9% 1000ML 1,000 ML IV SCH (17:01)
--- NOTE | 2021-10-24 17:37 | Operative Report ---
PG Post Operative Report Pre & Post Diagnosis Operation Date: 10/24/21 12:30 Pre-Op Diagnosis: Left Knee Advanced Degenerative Joint Disease Post-Op Diagnosis: Left Knee Advanced Degenerative Joint Disease I identified the patient and participated in the time-out.: Yes Procedure Operation Date: 10/24/21 12:30 Actual Procedures p Left Total Knee Arthroplasty(Left) - Greg Sexton MD Surgeon Greg Sexton MD Air Tank Assembler Jace Wren PA-C Estimated Blood Loss 50 Findings Consistent with Post-Op Diagnosis Operative findings revealed advanced left knee DJD. She had extensive grade 4 [id number] disease of the medial compartment with extensive eburnation. Her lateral patella femoral compartments were pretty well-preserved. 10 to 15 degree flexion contracture. Moderate-sized joint effusion. Specimens Sent for pathology Anesthesia Type Spinal MAC Complications none Disposition Accompanied Patient To Recovery: No Indications Patient is an 86-year-old female with a long history of bilateral knee pain discomfort the left side than the right. She failed conservative measures. X- rays show advanced knee arthritis. She elected proceed with left total knee arthroplasty. Description of Procedure Operative implants consist of: 1 Biomet Vanguard size 65 left posterior stabilized femoral component. 2. Biomet size 67 tibial tray. 3. 10 mm posterior stabilized polyethylene insert. 4. 31 x 8 all polypatella. The patient was taken the operating, identified, and placed on the operating table supine position protectors were properly padded. IV antibiotics tried by anesthesia team. A spinal anesthetic and abductor canal block had provided in the holding area. Acharya cath was placed in sterile fashion. A left thigh turn was then placed in the left lower extremities and prepped and draped in usual sterile fashion. Left leg was elevated exsanguinated with use of an Esmarch in terms playset 300 mmHg. An anterior approach left knee was then performed to longitudinal incision centered over the patella. Sharp dissection was carried through subcutaneous tissue down the extensor mechanism. Medial parapatellar arthrotomy incision was made. Some subperiosteal dissection was carried out medially. The fat pad was dissected from each patella tendon. The lateral patellofemoral ligament was released. Patella subluxated laterally and the knee was flexed. The osteophytes taken out distal femur. The ACL and PCL then released from distal femur and tibia subluxated anteriorly. The external tibial alignment jig was then placed in the interface the tibia and adjusted 14 mm medially. Proximal tibial cut was made remove about a millimeter bone from most deficient aspect medial tibial plateau. Some osteophytes were taken off medial and posterior medially. Tibia was then sized to a size 67. Attention drawn the femur. The distal femur examined the sharp drill bit intramedullary canal was suction. A left 5 degree valgus cutting guide was placed. Distal femoral cutting block was pinned in place. Distal femoral cut was made to take an additional 3 mm bone off distal femur. Femur was then sized to a size 65. We did downsize this almost an entire size. She had a very narrow medial to lateral dimensions of the femur. The AP cutting block was pinned parallel to the epicondylar axis which was 4 degrees of external rotation. The anterior cut, anterior chamfer, posterior cut, posterior chamfer cuts were made. The box cutting guide was placed in just slight lateral box cut was made. The knee was flexed. The remnants of the medial and lateral menisci were excised. The osteophytes taken off the posterior aspect of femur. A trial femoral component was placed. Tibial tray was pinned in maximum external rotation and the drill and stem punch used to create defect in proximal tibia for the tibial tray. The knee was then trialed and the 10 mm insert fit most appropriately. Attention drawn the patella. Patella was cleaned of all soft tissues. Patella thickness measured 22 mm in thickness was cut down to 14. Was sized to a size 31 patella. The lug holes were drilled for the 31 patella. The lateral osteophyte was removed. Patella button was placed. Knee was taken through range of motion patella tracked nicely with no thumbs test. Attention drawn to placing permanent components. Nupathe all trial components were removed. Bone plug was placed in the distal femur limit blood loss. Double batch Palacos G cement was mixed. A Biomet Vanguard size 65 left posterior stabilized femoral component, size 67 tibial tray, a 10 mm posterior stabilized polyethylene insert, and a 31 x 8 all polypatella then cemented in place. Knee was brought out into full extension until cement hardened. Final cement check was then performed. Pericapsular tissues were injected with total 100 cc of combination of 20 cc of Exparel, 30 cc normal saline, 50 cc of quarter percent Marcaine with epinephrine. Patient did receive 1 g tranexamic acid. The tourniquet was then let down for final turn time of 52minutes. Hemostasis assured use electrocautery. Extensor mechanism then closed with combination 1 PDS suture Vicryl suture in [id number] fashion for the extensor mechanism checked found to be intact the subcutaneous tissue then closed 2 Dexon suture in a buried interrupted fashion skin was closed skin pavel. Leg was then cleaned and dried and sterile dressing was Xeroform, 4 x 4's, sterile cast padding, David bandage were applied. Patient then transferred to the recovery room in stable condition. Patient tolerated the procedure well and there were no complications. Jace Wren, my physician medical library assistant, was present for the entire procedure. His assistance was essential and required for appropriate patient positioning, prepping and draping, surgical exposure, performing the technical details of the operation, placement the implants, closure of the wound, and placement of the sterile bandage. I attest to the content of the Intraoperative Record and any orders documented therein. Any exceptions are noted below.
[2021-10-24] MEDS: ceFAZolin 1000MG 1,000 MG/7.5 ML SYR IV SCH (20:01)
[2021-10-24] MEDS ORDERED: TRANEXAMIC ACID / 0.7% NACL 1,000 MG/100 ML BAG IV SCH (21:00)
[2021-10-24] MEDS ORDERED: SENNA 8.6 MG TAB PO SCH (21:00)
[2021-10-24] MEDS: DOCUSATE SODIUM 100 MG CAP PO SCH (21:31)
[2021-10-24] MEDS: ACETAMINOPHEN 500 MG TAB PO SCH (21:31)
[2021-10-24] MEDS: ASPIRIN 81 MG ECTAB PO SCH (21:31)
[2021-10-25] MEDS: ceFAZolin 1000MG 1,000 MG/7.5 ML SYR IV SCH (03:38)
[2021-10-25] MEDS: SODIUM CHLORIDE 0.9% 1000ML 1,000 ML IV SCH (04:13)
[2021-10-25] MEDS: ACETAMINOPHEN 500 MG TAB PO SCH ×2 (05:14→13:32)
[2021-10-25] MEDS: KETOROLAC TROMETHAMINE 15 MG/ML VIAL IV SCH ×2 (05:14→08:31)
[2021-10-25] MEDS ORDERED: LEVOTHYROXINE SODIUM 100 MCG TABLET PO SCH (06:30)
[2021-10-25 06:56] LABS: Hematocrit (blood only) 39.1 % (37-47); Hemoglobin 13.4 g/dL (12.0-16.0); Mean Corpuscular Hgb Conc 34.3 g/dL (32-36); Mean Corpuscular Volume 87.7 fL (80-100); Mean Platelet Volume 9.7 fL (7.4-10.4); Platelet Count 237 K/uL (130-400); RDW Coefficient of Variation 13.4 % (11.5-14.5); RDW Standard Deviation 42.7 fL (36.4-46.3); Red Blood Count 4.46 M/uL (4.2-5.4); White Blood Count 9.84 K/uL (4.8-10.8)
[2021-10-25 07:25] LABS: BUN Creatinine Ratio 16.9 (10-20); Creatinine Clr Calc Pharmacy 58.9 ml/min; Est GFR (African American) 93.8 ml/min; Potassium 3.3 mmol/L (3.5-5.1)
[2021-10-25] MEDS ORDERED: dexAMETHasone 10 MG in SYRINGE 0 ML IV SCH (08:00)
[2021-10-25] MEDS: ASCORBIC ACID 500 MG TAB PO SCH (08:31)
[2021-10-25] MEDS: DOCUSATE SODIUM 100 MG CAP PO SCH (08:32)
[2021-10-25] MEDS: ASPIRIN 81 MG ECTAB PO SCH (08:32)
[2021-10-25] MEDS ORDERED: DOCUSATE SODIUM/SENNA 50/8.6MG TAB PO SCH (09:00)
[2021-10-25] MEDS ORDERED: MULTIVITAMIN TAB PO SCH (09:00)
[2021-10-25] MEDS ORDERED: amLODIPine BESYLATE 5 MG TAB PO SCH (09:00)
[2021-10-25] MEDS ORDERED: LOSARTAN POTASSIUM 25 MG TAB PO SCH (09:00)
[2021-10-25] MEDS ORDERED: PANTOprazole 40 MG TAB PO SCH (09:00)
[2021-10-25] MEDS ORDERED: CHOLECALCIFEROL 1,000 UNITS 25 MCG TAB PO SCH (09:00)
[2021-10-25] MEDS ORDERED: ROSUVASTATIN CALCIUM 5 MG TAB PO SCH (09:00)
--- NOTE | 2021-10-25 16:01 | Progress Notes ---
DATE OF SERVICE: 10/25/2021. SUBJECTIVE: An 86-year-old female postoperative day 1 from left knee replacement. She is doing pret ty well. Feels therapy went well. Denies any chest pain or shortness of breath. Hoping to go home. OBJECTIVE: VITAL SIGNS: Temperature 36.5. Vital signs are stable. GENERAL: Shows a pleasant, elderly female. Sitting up in her bedside chair, looks pretty comfortabl e. She is talking to her friends. EXTREMITIES: Examination of the left leg reveals the dressing to be clean, dry and intact. She can dorsiflex and plantarflex her foot appropriately. She had a pretty good straight leg raise. LABORATORY DATA: Hemoglobin is 13.4. Hematocrit 39.1. Electrolytes are stable. Potassium is a lit tle bit low at 3.3. ASSESSMENT: An 86-year-old white female postoperative day 1 from a left knee replacement, doing pret ty well. Pain is controlled. She is neurologically intact. Hoping to go home. PLAN: 1. DVT prophylaxis includes thigh-high TEDs, SCDs, and aspirin twice a day. 2. PT, OT, weightbear as tolerated. Left total knee protocol. 3. Pain control, doing okay with current pain regimen. 4. Disposition: Plan to discharge to home with some home health and her friends assistance this mary carmel. Job ID: [id number]
--- NOTE | 2021-10-30 14:50 | Discharge Summary ---
Date of Service October 30, 2021 Discharge Data Procedures Performed Operation Date: 10/24/21 12:30 Actual Procedures p Left Total Knee Arthroplasty(Left) - Greg Sexton MD Hospital Course (1) Status post total left knee replacement: This patient is a 86 year old female admitted on 10/24/21 and underwent total knee arthroplasty. She tolerated the procedure well and there were no complications. Transferred to the PACU post op and later to the orthopedic floor for further care. She was given ancef for antibiotic prophylaxis. She was also given YOLETTE stockings, SCDs, and aspirin for DVT prophylaxis. Hemoglobin, hematocrit, and vital signs were monitored during her hospital stay and remained stable. Did not require any blood transfusions. There were no complications during her hospital stay. By post op day #1 the patient was tolerating a regular diet, pain was reasonably controlled with oral pain medicine, and she was participating in physical therapy. On post op day #1 the patient was discharged home and set up with home health care. She was given printed discharge instructions including prescriptions for extra strength tylenol, aspirin, toradol, zofran, and oxyco done. Continue physical therapy, weight bearing as tolerated. Continue YOLETTE stockings. Follow up approximately 2 weeks post op or sooner if there are problems or concerns. Coding Level of Care Code None Diagnoses Status post total left knee replacement Z96.652
== END 2021-10-25 16:23 | disposition home health service (06) ==
LOC: 3E 09:54 → ASU 09:54